=== PATIENT | male | born 1950 | race Caucasian/White ===

== ENCOUNTER 2018-01-07 08:41 | Emergency (ER) | payer MEDICARE, OTHER ==
[2018-01-07 08:49] VITALS: BP 173/92
[2018-01-07] MEDS ORDERED: TETANUS/DIPHTHERIA/PERTUSSIS 0.5 ML SYRINGE IM ONE (08:52)
[2018-01-07] MEDS ORDERED: BACITRACIN OINT TOP STA (08:52)
--- NOTE | 2018-01-07 08:56 | ED Physician Documentation ---
History of Present Illness - Stated complaint Stated Complaint: R HAND BURN - Chief complaint Chief Complaint: Burn - History obtained from History obtained from: Patient - History of Present Illness Timing: Last night Pain level max: 3 Pain level now: 1 Improved by: rest Worsened by: movement - Additonal information Additional information: Patient is a 67-year-old [id number] male who presents to the emergency department after a burn with hot cooking oil last night on the right hand. Placed aloe vera on the wound last night as well as colloidal silver. Came in for evaluation today because of the blistering. Unknown last tetanus. Review of Systems Constitutional: denies: Fever Neurologic: denies: Focal weakness, Numbness PD PAST MEDICAL HISTORY - Past Medical History Past Medical History: No - Past Surgical History Past Surgical History: Yes HEENT: Rhinoplasty - Present Medications Home Medications: Ambulatory Orders Medication Instructions Recorded Confirmed Bacitracin Zinc Oint 1 applic TOP BID #1 tube 01/07/18 - Allergies Allergies/Adverse Reactions: Allergies Allergy/AdvReac Type Severity Reaction Status Date / Time No Known Drug Allergies Allergy Verified 01/07/18 08:48 - Social History Does the pt smoke?: No Smoking Status: Never smoker - Immunizations Immunizations are current?: No Immunizations: TDAP >10years/unknown PD ED PE NORMAL - Vitals Vital signs reviewed: Yes - General General: Alert and oriented X 3, No acute distress - HEENT HEENT: Moist mucous membranes - Extremities Extremities: Other (R hand - partial thickness burn to the lateral aspect of the index finger and the lateral aspect of the hand. NVI. blisters inact.) - Neuro Neuro: Alert and oriented X 3 - Psych Psych: Normal mood, Normal affect Results - Vitals Vitals: Vital Signs - 24 hr 01/07/18 08:45 Temperature 36.4 C L Heart Rate 65 Respiratory 18 Rate Blood Pressure 173/92 H O2 Saturation 97 Oxygen O2 Source Room air PD MEDICAL DECISION MAKING - ED course Complexity details: considered differential, d/w patient ED course: Patient is a 67-year-old male with a partial thickness burn to the right hand. Tdap given. The wound was cleansed and bandaged. Tolerated well. Does not require anything for pain. Will follow up with his PCP for further care. Will also give him hand stretches to perform from [employer]. Warnings of infection and instructions on wound care given at bedside. Also counseled on how to minimize scarring. Patient counseled regarding signs and symptoms for which I believe and urgent re-evaluation would be necessary. Patient with good understanding of and agreement to plan and is comfortable going home at this time This document was made in part using voice recognition software. While efforts are made to proofread this document, sound alike and grammatical errors may occur. Departure - Departure Disposition: 01 Home, Self Care Clinical Impression: Burn of hand Qualifiers: Encounter type: initial encounter Burn of hand location: unspecified site Laterality: right Burn degree: partial thickness (2nd degree) Qualified Code(s) : T23.201A - Burn of second degree of right hand, unspecified site, initial encounter Condition: Good Instructions: ED Burn Scald, ED Burn D 2nd Follow-Up: Rajan De Los Santos MD [Primary Care Provider] - Within 1 week (for wound check) Prescriptions: Bacitracin Zinc Oint 1 applic TOP BID #1 tube Comments: Keep the wound clean. Return for redness, swelling or drainage from the wound. Search [email or web address] for burn educational videos [facility] for hand stretching exercises for your burn. Discharge Date/Time: 01/07/18 09:25
== END 2018-01-07 09:25 | disposition home or self-care (01) ==
LOC: ED 08:41
DX: T23.201A Burn of second degree of right hand, unspecified site, initial encounter (principal); T31.0 Burns involving less than 10% of body surface; X10.2XXA Contact with fats and cooking oils, initial encounter; Z23 Encounter for immunization
CPT/HCPCS: 90471; 90715; 99281; 99282; A9270

== ENCOUNTER 2019-12-06 07:34 | Outpatient (CLI) | payer MEDICARE, OTHER ==
[2019-12-06 12:23] LABS: BASOPHILS # (AUTO) 0.1 10^3/uL (0.0-0.1); BASOPHILS % (AUTO) 0.7 %; EOSINOPHILS # (AUTO) 0.5 10^3/uL (0.0-0.7); EOSINOPHILS % (AUTO) 7.2 %; HGB - HEMOGLOBIN 15.5 g/dL (14.0-18.0); LYMPHOCYTES # (AUTO) 1.8 10^3/uL (1.5-3.5); LYMPHOCYTES % (AUTO) 25.1 %; MEAN CORPUSCULAR HEMOGLOBIN 30.2 pg (27.0-31.0); MEAN CORPUSCULAR HGB CONC 32.9 g/dL (32.0-36.0); MEAN CORPUSCULAR VOLUME 91.6 fL (80.0-94.0); MEAN PLATELET VOLUME 9.5 fL (7.4-11.4); MONOCYTES # (AUTO) 0.7 10^3/uL (0.0-1.0); MONOCYTES % (AUTO) 10.4 %; NEUTROPHILS % (AUTO) 56.2 %; PLT - PLATELET COUNT 287 10^3/uL (130-450); RED BLOOD COUNT 5.14 10^6/uL (4.70-6.10); RED CELL DISTRIBUTION WIDTH 13.5 % (12.0-15.0); WHITE BLOOD COUNT 7.1 x10^3/uL (4.8-10.8)
[2019-12-06 12:31] LABS: ALBUMIN 4.2 g/dL (3.2-5.5); ALBUMIN/GLOBULIN RATIO 1.2 (1.0-2.2); ALKALINE PHOSPHATASE 52 IU/L (42-121); ALT ALANINE AMINOTRANSFERASE 53 IU/L (10-60); AST ASPARTATE AMINOTRANSFERASE 32 IU/L (10-42); BILIRUBIN,TOTAL 0.7 mg/dL (0.2-1.0); BUN - BLOOD UREA NITROGEN 19 mg/dL (6-20); CALCIUM 9.9 mg/dL (8.5-10.3); CARBON DIOXIDE - CO2 25 mmol/L (21-32); CHLORIDE 103 mmol/L (101-111); CHOL/HDL RATIO 4.1 (<5.0); CHOLESTEROL 218 mg/dL; CREATININE 1.1 mg/dL (0.6-1.2); GFR - MDRD 67 (>89); GLUCOSE 106 mg/dL (70-100); HDL CHOLESTEROL 53 mg/dL; LDL CHOLESTEROL,CALCULATED 147 mg/dL; LDL/HDL RATIO 2.8 (<3.6); SODIUM 136 mmol/L (135-145); TOTAL PROTEIN 7.7 g/dL (6.7-8.2); VLDL CHOLESTEROL 18 mg/dL
== END 2019-12-06 23:59 | disposition home or self-care (01) ==
LOC: LAB.WCP 07:34
PROVIDERS: ATTEND Nurse Practitioner Family
DX: I10 Essential (primary) hypertension (principal); E78.5 Hyperlipidemia, unspecified
CPT/HCPCS: 36415; 80053; 80061; 83721; 84443; 85025

== ENCOUNTER 2019-12-12 07:52 | Outpatient (CLI) | payer MEDICARE, OTHER ==
--- NOTE | 2019-12-12 10:04 | CT Report ---
Reason: FORMER SMOKER, QUIT > 1 YEAR Procedure Date: 12/12/2019 Accession Number: [id number] / [id number] Procedure: CT - Low Dose Lung Cancer Screen CPT Code: Final Report FULL RESULT: EXAM CT LUNG SCREEN EXAM DATE: 12/12/2019 08:11 AM. HISTORY: 69-year-old patient with 34-umls-glur smoking history. Currently smoking: No. Years since quittin. COMPARISON: None. TECHNIQUE: CT examination of the entire thorax without contrast was performed using low-dose technique. Thin section coronal, axial, sagittal and MIP axial images were obtained. In accordance with CT protocol optimization, one or more of the following dose reduction techniques were utilized for this exam: automated exposure control, adjustment of mA and/or KV based on patient size, or use of iterative reconstructive technique. FINDINGS: Nodules: Right upper lobe: 5 mm nodular opacity, image 35, series 4. 2 mm nodular opacity, image 65, series 4. Right middle lobe: Fissural nodular opacity 5 mm, image 94, series 4. Right lower lobe: 2.5 mm nodular opacity subpleural, image 102, series 4. Left upper lobe: 2 mm nodule posterior inferior, image 97, series 4. Left lower lobe: 2 mm medial, image 81, series 4. 2 mm subpleural posterior, image 88, series 4. 2 mm inferior, image 126, series 4. Emphysema: Mild emphysematous changes present. Pleura: Unremarkable. Aorta: Thoracic aortic calcified plaque. No aneurysm. Mediastinum: Heart size normal. Small hiatal hernia. No enlarged mediastinal or hilar lymph nodes. Visualized thyroid gland appears small. Mildly prominent bilateral axillary lymph nodes are seen measuring up to 7-8 mm in short axis dimension. Coronary calcifications: Marked degree of coronary artery calcified plaque. Other pulmonary findings: Calcified granuloma seen in the left upper lobe and left lower lobes. No focal consolidation. Lingular scar/atelectasis also present in the right middle lobe and both lower lobes. Other extrapulmonary findings: Included portions of the liver, spleen, adrenals, pancreas and gallbladder are unremarkable. A high-density structure is seen by the duodenum may represent a recently ingested structure such as a pill. Included portions of the kidneys are limited in detail due to technique but are otherwise unremarkable. Abdominal artery calcified plaque. Included portions of the stomach and upper abdominal bowel are otherwise unremarkable. Degenerative changes of the thoracic spine. IMPRESSION: Lung-RADS ASSESSMENT CATEGORY: 2 - benign appearance or behavior. Probability of malignancy: Less than 1%. RECOMMENDATION: Follow-up in 12 months with low-dose chest CT recommended. RADIA
== END 2019-12-12 07:53 | disposition home or self-care (01) ==
LOC: DI 07:52
PROVIDERS: ATTEND Nurse Practitioner Family
DX: Z12.2 Encounter for screening for malignant neoplasm of respiratory organs (principal); J43.9 Emphysema, unspecified; Z87.891 Personal history of nicotine dependence

== ENCOUNTER 2020-01-19 10:06 | Day surgery (SDC) | payer MEDICARE, OTHER ==
[2020-01-19] MEDS ORDERED: LACTATED RINGERS 1,000 ML IV ONE (10:13)
[2020-01-19] MEDS ORDERED: MIDAZOLAM 2 MG/2 ML VIAL IVP ONE (11:04)
[2020-01-19] MEDS ORDERED: fentaNYL 250 MCG/5 ML VIAL IVP ONE (11:04)
[2020-01-19 12:30] VITALS: BP 111/75
== END 2020-01-19 10:07 | disposition home or self-care (01) ==
LOC: SDS 10:06
PROVIDERS: ATTEND Surgery
DX: Z12.11 Encounter for screening for malignant neoplasm of colon (principal); K64.8 Other hemorrhoids; Z86.010 Personal history of colon polyps; Z87.891 Personal history of nicotine dependence; Z86.79 Personal history of other diseases of the circulatory system; Z80.0 Family history of malignant neoplasm of digestive organs
CPT/HCPCS: G0105; J3010; J7120

== ENCOUNTER 2020-02-17 20:41 | Outpatient (CLI) | payer MEDICARE, OTHER | END 2020-02-17 20:42 | disposition home or self-care (01) | LOC: COV 20:41 | PROVIDERS: ATTEND Family Medicine | DX: R50.9 Fever, unspecified (principal) ==

== ENCOUNTER 2020-09-29 11:57 | Emergency (ER) | payer MEDICARE, OTHER ==
--- NOTE | 2020-09-29 12:30 | ED Physician Documentation ---
PD HPI FOCAL NEURO - Stated complaint Stated Complaint: DIZZY, HEAD PRESSURE - Chief complaint Chief Complaint: Neuro - History obtained from History obtained from: Patient - Additional information Additional information: Generally healthy 70-year-old gentleman got up early this morning to go to the bathroom around 330. When he got there he felt dizzy, like his eyes were spinning around in his head and he had to lean over. The dizziness lasted maybe 1 to 2 minutes and is gone and has not recurred but he has persistent left retro-orbital pressure since. He denies visual deficits, congestion, ear pain, fevers. No nausea or vomiting. He does not have a history of vertigo or other dizziness. Review of Systems Ten Systems: 10 systems reviewed and negative Constitutional: reports: Reviewed and negative Throat: reports: Reviewed and negative Cardiac: reports: Reviewed and negative Respiratory: reports: Reviewed and negative PD PAST MEDICAL HISTORY - Past Medical History Past Medical History: Yes Cardiovascular: Hypertension, High cholesterol Respiratory: Sleep apnea Neuro: None Endocrine/Autoimmune: None GI: GERD, Colon polyps, Other : None HEENT: None Psych: Depression Musculoskeletal: None Derm: None - Past Surgical History Past Surgical History: Yes General: Colonoscopy HEENT: Rhinoplasty - Present Medications Home Medications: Ambulatory Orders Medication Instructions Recorded Confirmed Multivitamin [Daily Multiple 1 tab PO DAILY 01/18/20 09/29/20 Vitamin] Diphenhydramine HCl/Zinc Acet 28.3 gm TP DAILY PRN 01/19/20 09/29/20 [Benadryl Itch Stopping Crm] Red Yeast Rice 600 mg PO DAILY 01/19/20 09/29/20 Famotidine [Pepcid] 20 mg PO DAILY 09/29/20 09/29/20 Mometasone Furoate [Nasonex] 1 spray NS BID #1 spray.pump 09/29/20 - Allergies Allergies/Adverse Reactions: Allergies Allergy/AdvReac Type Severity Reaction Status Date / Time No Known Drug Allergies Allergy Verified 09/29/20 12:16 - Social History Does the pt smoke?: No Smoking Status: Former smoker Does the pt drink ETOH?: Yes Does the pt have substance abuse?: Yes Substance Use and Type: Marijuana - Immunizations Immunizations are current?: No Immunizations: TDAP >10years/unknown - POLST Patient has POLST: No PD ED PE NORMAL - Vitals Vital signs reviewed: Yes - General General: Alert and oriented X 3, No acute distress - HEENT HEENT: PERRL, EOMI, Other (TMs are retracted) - Neck Neck: Supple, no meningeal sign, No bony TTP - Cardiac Cardiac: RRR, No murmur - Respiratory Respiratory: No respiratory distress, Clear bilaterally - Abdomen Abdomen: Non tender - Back Back: No CVA TTP, No spinal TTP - Derm Derm: Normal color, Warm and dry - Extremities Extremities: No edema, No calf tenderness / cord - Neuro Neuro: Alert and oriented X 3, No motor deficit, No sensory deficit, Normal speech NIHSS - Time Time: 12:20 - Level of Consciousness Level of consciousness: (0) Alert, Keenly responsive LOC Questions: (0) Answers both Q's correct LOC Commands: (0) Performs both correctly - Gaze Best Gaze: (0) Normal - Visual Visual: (0) No loss - Facial Palsy Facial Palsy: (0) Normal, symmetrical movement - Motor Arms (both separate) Motor Arm (right): (0) No drift Motor Arm (left): (0) No drift - Motor Legs (both separate) Motor Leg (right): (0) No drift Motor Leg (left): (0) No drift - Limb Ataxia Limb Ataxia: (0) Absent - Sensory Sensory: (0) Normal - Best Language Best Language: (0) No aphasia - Dysarthria Dysarthria: (0) Normal - Extinction and Inattention (formally neg Extinction and inattention: (0) No abnormality - Total Score/Results Total Score/Result: 0 Results - Vitals Vitals: Vital Signs - 24 hr 09/29/20 09/29/20 09/29/20 12:11 12:23 13:25 Temperature 36.0 C L 37.3 C Heart Rate 71 71 60 Respiratory 15 16 14 Rate Blood Pressure 163/91 H 142/83 H 143/81 H O2 Saturation 98 99 96 Oxygen O2 Source Room air - EKG (time done) 1209 Rate: Rate (enter#) (70) Rhythm: NSR [place]: Normal Intervals: Normal [place] QRS: Normal Ischemia: Non specific changes Computer interpretation: Agree with computer - Labs Labs: Laboratory Tests 09/29/20 09/29/20 12:15 12:15 WBC 9.5 RBC 4.91 Hgb 15.4 Hct 44.5 MCV 90.6 MCH 31.4 H MCHC 34.6 RDW 13.2 Plt Count 230 MPV 9.3 Neut # (Auto) 6.6 Lymph # (Auto) 1.7 [place] # (Auto) 0.8 Eos # (Auto) 0.4 Baso # (Auto) 0.0 Absolute Nucleated RBC 0.00 Nucleated RBC % 0.0 Sodium 134 L Potassium 3.8 Chloride 100 L Carbon Dioxide 23 Anion Gap 11.0 BUN 12 Creatinine 1.0 Estimated GFR (MDRD) 74 L Glucose 91 Calcium 9.5 PD MEDICAL DECISION MAKING - ED course ED course: 70-year-old gentleman with a short episode of resolved vertigo this morning that per his description is likely peripheral but with persistent left-sided head pressure since. Cranial imaging was negative. With the exception of sinus disease for which he is administered a nasal steroid. This may be the cause of his head pressure. Exam was normal other than retracted tympanic membranes. Departure - Departure Disposition: 01 Home, Self Care Clinical Impression: Sinus disease Peripheral vertigo Qualifiers: Laterality: unspecified laterality Qualified Code(s): H81.399 - Other peripheral vertigo, unspecified ear Condition: Good Record reviewed to determine appropriate education?: Yes Instructions: ED Vertigo Unspecified Prescriptions: Mometasone Furoate [Nasonex] 1 spray NS BID #1 spray.pump Comments: Call your doctor to arrange a follow-up appointment, make the next available appointment. In the interim, return anytime if worse or if new symptoms develop. Discharge Date/Time: 09/29/20 13:55
[2020-09-29 12:40] LABS: BASOPHILS % (AUTO) 0.4 %; EOSINOPHILS # (AUTO) 0.4 10^3/uL (0.0-0.7); EOSINOPHILS % (AUTO) 3.9 %; HGB - HEMOGLOBIN 15.4 g/dL (14.0-18.0); LYMPHOCYTES # (AUTO) 1.7 10^3/uL (1.5-3.5); LYMPHOCYTES % (AUTO) 17.5 %; MEAN CORPUSCULAR HEMOGLOBIN 31.4 pg (27.0-31.0); MEAN CORPUSCULAR HGB CONC 34.6 g/dL (32.0-36.0); MEAN CORPUSCULAR VOLUME 90.6 fL (80.0-94.0); MEAN PLATELET VOLUME 9.3 fL (7.4-11.4); MONOCYTES # (AUTO) 0.8 10^3/uL (0.0-1.0); MONOCYTES % (AUTO) 8.5 %; NEUTROPHILS # (AUTO) 6.6 10^3/uL (1.5-6.6); NEUTROPHILS % (AUTO) 69.3 %; PLT - PLATELET COUNT 230 10^3/uL (130-450); RED BLOOD COUNT 4.91 10^6/uL (4.70-6.10); RED CELL DISTRIBUTION WIDTH 13.2 % (12.0-15.0); WHITE BLOOD COUNT 9.5 x10^3/uL (4.8-10.8)
[2020-09-29 12:45] LABS: CALCIUM 9.5 mg/dL (8.5-10.3)
[2020-09-29 13:26] VITALS: BP 143/81
--- NOTE | 2020-09-29 13:36 | CT Report ---
PROCEDURE: HEAD WO INDICATIONS: vertigo TECHNIQUE: Noncontrast 4.5 mm thick angled axial sections acquired from the foramen magnum to the vertex. For r adiation dose reduction, the following was used: automated exposure control, adjustment of mA and/or kV according to patient size. COMPARISON: None. FINDINGS: Image quality: Excellent. CSF spaces: Basal cisterns are patent. No extra-axial fluid collections. Ventricles are normal in size and shape. Brain: No midline shift. No intracranial masses or hemorrhage. [place]-white matter interface is norm al. Atherosclerotic calcifications of the intracranial segments of the internal carotid arteries. Skull and face: Calvarium and visualized facial bones are intact, without suspicious lesions. Sinuses: Scattered ethmoid and sphenoid sinus mucosal thickening. Remainder of the visualized sinuse s and mastoids are clear. IMPRESSION: 1. CT head without acute intracranial abnormalities. 2. Scattered ethmoid and sphenoid sinus disease. Reviewed by: Abimael Mary MD on 09/29/2020 12:34 PM [facility] Approved by: Abimael Mary MD on 09/29/2020 12:34 PM [facility] Station ID: [id number]
== END 2020-09-29 13:55 | disposition home or self-care (01) ==
LOC: ED 11:57
DX: H81.399 Other peripheral vertigo, unspecified ear (principal); J01.30 Acute sphenoidal sinusitis, unspecified; I10 Essential (primary) hypertension; Z87.891 Personal history of nicotine dependence
CPT/HCPCS: 36415; 70450; 80048; 85025; 93005; 99284

== ENCOUNTER 2020-10-11 12:17 | Emergency (ER) | payer MEDICARE, OTHER ==
--- NOTE | 2020-10-11 12:32 | ED Physician Documentation ---
History of Present Illness - Stated complaint Stated Complaint: DIZZINESS - Chief complaint Chief Complaint: Neuro - History obtained from History obtained from: Patient - Additonal information Additional information: 70 yo M presents with vertigo x 2 days. States he has sudden spells where he feels the room is spinning and his "eyeballs and dancing around." States he was seen on 09/29 and dx'd with vertigo at that time. He had a negative CT then. He did have some sinus sx at that time and was given nasal steroids. He felt improvement and sx resolved the next day. He has been continuing the nasal steroids but again developed the vertigo. Feels his sinus sx have improved however. Vertigo is positional, worse when he is up or moves quickly. Doesn't seem to be worse on one side or another. Denies any associated neuro sx, ext weak/numbness, ataxia, vision changes, vomiting. He does have head pressure in the left parietal area, similar to before. No cough or URI sx, no fever, no cp, dyspnea, abd pain, n/v/d. He denies any new meds except for nasal spray. Denies drugs/etoh. He did follow up w/ PCP a few days ago after the initial episode and had an apparently normal exam. Review of Systems Constitutional: reports: Reviewed and negative Eyes: reports: Reviewed and negative Ears: reports: Reviewed and negative Nose: reports: Congestion. denies: Rhinorrhea / runny nose, Sinus pressure / pain, Foreign Body Throat: reports: Reviewed and negative Cardiac: reports: Reviewed and negative Respiratory: reports: Reviewed and negative GI: reports: Reviewed and negative : reports: Reviewed and negative Skin: reports: Reviewed and negative Musculoskeletal: reports: Reviewed and negative Neurologic: reports: Other (vertigo, otherwise negative.) Psychiatric: reports: Reviewed and negative Endocrine: reports: Reviewed and negative PD PAST MEDICAL HISTORY - Past Medical History Cardiovascular: Hypertension, High cholesterol Respiratory: Sleep apnea Neuro: None Endocrine/Autoimmune: None GI: GERD, Colon polyps, Other : None HEENT: None Psych: Depression Musculoskeletal: None Derm: None - Past Surgical History Past Surgical History: Yes General: Colonoscopy HEENT: Rhinoplasty - Present Medications Home Medications: Ambulatory Orders Medication Instructions Recorded Confirmed Multivitamin [Daily Multiple 1 tab PO DAILY 01/18/20 09/29/20 Vitamin] Diphenhydramine HCl/Zinc Acet 28.3 gm TP DAILY PRN 01/19/20 09/29/20 [Benadryl Itch Stopping Crm] Red Yeast Rice 600 mg PO DAILY 01/19/20 09/29/20 Famotidine [Pepcid] 20 mg PO DAILY 09/29/20 09/29/20 Mometasone Furoate [Nasonex] 1 spray NS BID #1 spray.pump 09/29/20 Meclizine [Antivert] 25 mg PO Q6H PRN #30 tablet 10/11/20 - Allergies Allergies/Adverse Reactions: Allergies Allergy/AdvReac Type Severity Reaction Status Date / Time No Known Drug Allergies Allergy Verified 09/29/20 12:16 - Social History Does the pt smoke?: No Smoking Status: Former smoker Does the pt drink ETOH?: Yes Does the pt have substance abuse?: Yes - Immunizations Immunizations are current?: No Immunizations: TDAP >10years/unknown - POLST Patient has POLST: No PD ED PE NORMAL - Vitals Vital signs reviewed: Yes - General General: Alert and oriented X 3, No acute distress, Well developed/nourished - HEENT HEENT: Atraumatic, PERRL, EOMI, Ears normal, Moist mucous membranes, Pharynx benign, Other (NO nystagmus) - Neck Neck: Supple, no meningeal sign, No bony TTP - Cardiac Cardiac: RRR, No murmur, No gallop, No rub - Respiratory Respiratory: No respiratory distress, Clear bilaterally - Abdomen Abdomen: Normal bowel sounds, Soft, Non tender, Non distended - Derm Derm: Normal color, Warm and dry, No rash - Extremities Extremities: No deformity, Normal ROM s pain, No edema - Neuro Neuro: Alert and oriented X 3, lead massage therapist 2-12 intact, No motor deficit, No sensory deficit, Normal speech, Other (Negative emily halpike, didn't induce vertigo on exam. No ataxia w/ ambulation. +saccade w/ horizontal impulse) Eye Opening: Spontaneous Motor: Obeys Commands Verbal: Oriented GCS Score: 15 - Psych Psych: Normal mood, Normal affect Results - Vitals Vitals: Vital Signs - 24 hr 10/11/20 10/11/20 12:20 13:34 Temperature 36.8 C 36.8 C Heart Rate 61 62 Respiratory 18 12 Rate Blood Pressure 164/65 H 144/87 H O2 Saturation 99 94 Oxygen O2 Source Room air - EKG (time done) No standard instances Rate: Rate (enter#) (63) Rhythm: NSR [place]: Normal Intervals: Normal [place] QRS: Normal Ischemia: Normal ST segments Compare to prior EKG: Unchanged from prior EKG Computer interpretation: Agree with computer - Labs Labs: Laboratory Tests 10/11/20 10/11/20 10/11/20 12:34 12:51 12:51 WBC 6.0 RBC 4.82 Hgb 15.0 Hct 43.8 MCV 90.9 MCH 31.1 H MCHC 34.2 RDW 13.0 Plt Count 225 MPV 9.3 Neut # (Auto) 3.5 Lymph # (Auto) 1.6 [place] # (Auto) 0.5 Eos # (Auto) 0.4 Baso # (Auto) 0.1 Absolute Nucleated RBC 0.00 Nucleated RBC % 0.0 Sodium 135 Potassium 4.1 Chloride 102 Carbon Dioxide 26 Anion Gap 7.0 BUN 15 Creatinine 0.9 Estimated GFR (MDRD) 84 L Glucose 129 H Calcium 10.1 Total Bilirubin 0.6 AST 26 ALT 47 Alkaline Phosphatase 54 Total Protein 7.1 Albumin 3.9 Globulin 3.2 Albumin/Globulin Ratio 1.2 Lipase 36 Urine Color YELLOW Urine Clarity CLEAR Urine pH 7.5 Ur Specific [place] 1.015 Urine Protein NEGATIVE Urine Glucose (UA) NEGATIVE Urine Ketones NEGATIVE Urine Occult Blood NEGATIVE Urine Nitrite NEGATIVE Urine Bilirubin NEGATIVE Urine Urobilinogen 0.2 (NORMAL) Ur Leukocyte Esterase TRACE H Urine RBC None Seen Urine WBC 0-3 Ur Squamous Epith Cells NONE SEEN Urine Bacteria Rare Ur Microscopic Review INDICATED Urine Culture Comments INDICATED PD MEDICAL DECISION MAKING - ED course Complexity details: reviewed old records, reviewed results, re-evaluated patient, considered differential, d/w patient ED course: Pt presented again with sx of vertigo today, similar to last visit on 09/29. He had a negative CT at that time and I didn't seen an indication to repeat it again today. Vertigo is transient and he currently does not have symptoms. His neuro exam was normal, there is no ataxia. Sx suggestive of a peripheral vertigo but I advised if he continues to have episodes I'd recommend fup with neurology for additional workup. Pt to continue nasal steroids and will add prn meclizine. Provided with copy of exercises to try when the vertigo strikes. Advised to stay well hydrated, move slowly when changing positions, avoid driving/operating machinery until sx resolve. Cautioned on side effects of meclizine. Departure - Departure Disposition: 01 Home, Self Care Clinical Impression: Vertigo Peripheral vertigo Qualifiers: Laterality: unspecified laterality Qualified Code(s): H81.399 - Other peripheral vertigo, unspecified ear Condition: Good Instructions: Meclizine, ED Near Syncope Unkn, ED Vertigo Unspecified Prescriptions: Meclizine [Antivert] 25 mg PO Q6H PRN #30 tablet PRN Reason: Vertigo Comments: You presented with vertigo. Your labs are reassuring and you have a normal physical exam. I did not repeat the CT today as you had one recently that was normal. I will prescribe medication for the vertigo that can sometimes be helpful. If you have recurrent symptoms, please see your PCP and consider referral to neurology and/or an MRI. If you develop new neurologic symptoms such as focal weakness, confusion, numbness, vomiting, or otherwise new symptoms, please return to the ER. Discharge Date/Time: 10/11/20 13:36
[2020-10-11 12:45] LABS: BILIRUBIN,URINE NEGATIVE (NEGATIVE); GLUCOSE, URINE (UA) NEGATIVE (NEGATIVE); KETONES,URINE (UA) NEGATIVE (NEGATIVE); LEUKOCYTE ESTERASE, URINE TRACE (NEGATIVE); NITRITE,URINE NEGATIVE (NEGATIVE); OCCULT BLOOD,URINE NEGATIVE (NEGATIVE); PH,URINE 7.5 PH (5.0-7.5); PROTEIN,URINE NEGATIVE (NEGATIVE); UROBILINOGEN,URINE 0.2 (NORMAL) E.U./dL (NORMAL)
[2020-10-11 12:47] LABS: CLARITY,URINE CLEAR (CLEAR)
[2020-10-11 13:01] LABS: BACTERIA,URINE Rare /HPF (None Seen); RBC,URINE None Seen /HPF (0-5); SQUAMOUS EPITHELIAL CELL,UR NONE SEEN (<= Few)
[2020-10-11 13:02] LABS: BASOPHILS # (AUTO) 0.1 10^3/uL (0.0-0.1); BASOPHILS % (AUTO) 0.8 %; EOSINOPHILS # (AUTO) 0.4 10^3/uL (0.0-0.7); EOSINOPHILS % (AUTO) 7.3 %; LYMPHOCYTES # (AUTO) 1.6 10^3/uL (1.5-3.5); LYMPHOCYTES % (AUTO) 26.4 %; MEAN CORPUSCULAR HEMOGLOBIN 31.1 pg (27.0-31.0); MEAN CORPUSCULAR HGB CONC 34.2 g/dL (32.0-36.0); MEAN CORPUSCULAR VOLUME 90.9 fL (80.0-94.0); MEAN PLATELET VOLUME 9.3 fL (7.4-11.4); MONOCYTES # (AUTO) 0.5 10^3/uL (0.0-1.0); MONOCYTES % (AUTO) 7.5 %; NEUTROPHILS # (AUTO) 3.5 10^3/uL (1.5-6.6); NEUTROPHILS % (AUTO) 57.5 %; PLT - PLATELET COUNT 225 10^3/uL (130-450); RED BLOOD COUNT 4.82 10^6/uL (4.70-6.10)
[2020-10-11 13:13] LABS: ALBUMIN 3.9 g/dL (3.2-5.5); ALBUMIN/GLOBULIN RATIO 1.2 (1.0-2.2); BILIRUBIN,TOTAL 0.6 mg/dL (0.2-1.0); CALCIUM 10.1 mg/dL (8.5-10.3); CREATININE 0.9 mg/dL (0.6-1.2); TOTAL PROTEIN 7.1 g/dL (6.7-8.2)
[2020-10-11 13:36] VITALS: BP 144/87
== END 2020-10-11 13:36 | disposition home or self-care (01) ==
LOC: ED 12:17
DX: H81.399 Other peripheral vertigo, unspecified ear (principal); I10 Essential (primary) hypertension; Z87.891 Personal history of nicotine dependence
CPT/HCPCS: 36415; 80053; 81001; 81003; 83690; 84484; 85025; 87086; 93005; 99283; 99284

== ENCOUNTER 2021-01-05 09:36 | Outpatient (CLI) | payer MEDICARE, OTHER ==
--- NOTE | 2021-01-05 11:08 | CT Report ---
PROCEDURE: CHEST WO INDICATIONS: MULTIPLE NODULES OF LUNG, FORMER SMOKER TECHNIQUE: Noncontrast 5 mm thick sections acquired from the pulmonary apices to the posterior costophrenic angl es. 7 mm thick coronal and sagittal MIP reformats were then acquired. For radiation dose reduction, the following was used: automated exposure control, adjustment of mA and/or kV according to patient size. COMPARISON: Chest CT 12/12/2019 FINDINGS: Image quality: Excellent. Lungs and pleura: Pulmonary nodules are seen, which are as follows: Right upper lobe, series 4 image 76, 4 mm, stable Right oblique fissure, series 4 image 190, 5 mm, stable Right lower lobe, subpleural, potentially calcified, series 4 image 199, 2 mm, stable Left upper lobe, posteriorly and inferiorly, series 4 image 186, potentially calcified, 2 mm, stable Left lower lobe, subpleural, series 4 image 160, 2 to 3 mm, stable Left lower lobe, subpleural posteriorly, potentially calcified, series 4 image 171, 2 mm, stable The previously described 2 mm nodular opacity within the right upper lobe is no longer definitely see n. No new pulmonary nodules can be seen. No acute air space opacities. No pleural effusions or pneumothorax. Central and peripheral airways are patent and normal in caliber. Mediastinum: Heart size is normal. Dense coronary artery calcifications are seen. No pericardial eff usion. No mediastinal adenopathy by size criteria. Thoracic aorta and central pulmonary arteries ar e normal in size. Dense atherosclerosis calcification is seen. Esophagus is normal in caliber. There is a small hiatal hernia. Bones and chest wall: No suspicious bony lesions. Age-appropriate degenerative changes are seen. No vertebral body compression fractures. No axillary or supraclavicular adenopathy by size criteria. The thyroid is normal in size. Abdomen: Visualized upper abdominal solid organs and bowel loops appear normal in the absence of con trast. Dense atherosclerotic calcification can be seen, including involving the origins of the denita c axis and the SMA. IMPRESSION: Several pulmonary nodules are seen, with the largest measuring up to 4 mm. Recommend annual low-dose CT chest screening examinations, as long as the patient meets the published screening criteria. Incidental note is made of: Small hiatal hernia Dense assess chronic calcification, including coronary artery calcification Reviewed by: Bradley Kearney MD on 01/05/2021 10:07 AM [place] Approved by: Bradely Kearney MD on 01/05/2021 10:07 AM [facility] Station ID: [id number]
== END 2021-01-05 09:37 | disposition home or self-care (01) ==
LOC: DI 09:36
PROVIDERS: ATTEND Nurse Practitioner Family
DX: R91.8 Other nonspecific abnormal finding of lung field (principal); Z87.891 Personal history of nicotine dependence; K44.9 Diaphragmatic hernia without obstruction or gangrene

== ENCOUNTER 2021-01-09 08:00 | Outpatient (CLI) | payer MEDICARE, OTHER ==
[2021-01-09 18:21] LABS: BASOPHILS % (AUTO) 0.6 %; EOSINOPHILS # (AUTO) 0.7 10^3/uL (0.0-0.7); EOSINOPHILS % (AUTO) 9.6 %; HGB - HEMOGLOBIN 15.8 g/dL (14.0-18.0); LYMPHOCYTES # (AUTO) 1.8 10^3/uL (1.5-3.5); MEAN CORPUSCULAR HEMOGLOBIN 30.5 pg (27.0-31.0); MEAN CORPUSCULAR VOLUME 92.5 fL (80.0-94.0); MEAN PLATELET VOLUME 10.1 fL (7.4-11.4); MONOCYTES # (AUTO) 0.6 10^3/uL (0.0-1.0); MONOCYTES % (AUTO) 9.3 %; NEUTROPHILS # (AUTO) 3.6 10^3/uL (1.5-6.6); NEUTROPHILS % (AUTO) 53.2 %; PLT - PLATELET COUNT 262 10^3/uL (130-450); RED BLOOD COUNT 5.18 10^6/uL (4.70-6.10); RED CELL DISTRIBUTION WIDTH 13.3 % (12.0-15.0); WHITE BLOOD COUNT 6.8 x10^3/uL (4.8-10.8)
[2021-01-09 18:41] LABS: ALBUMIN 4.4 g/dL (3.2-5.5); ALBUMIN/GLOBULIN RATIO 1.5 (1.0-2.2); ALKALINE PHOSPHATASE 58 IU/L (42-121); ALT ALANINE AMINOTRANSFERASE 46 IU/L (10-60); AST ASPARTATE AMINOTRANSFERASE 27 IU/L (10-42); BILIRUBIN,TOTAL 0.8 mg/dL (0.2-1.0); BUN - BLOOD UREA NITROGEN 16 mg/dL (6-20); CALCIUM 10.9 mg/dL (8.5-10.3); CARBON DIOXIDE - CO2 25 mmol/L (21-32); CHLORIDE 99 mmol/L (101-111); CHOL/HDL RATIO 4.5 (<5.0); CHOLESTEROL 232 mg/dL; GLUCOSE 97 mg/dL (70-100); HDL CHOLESTEROL 51 mg/dL; LDL CHOLESTEROL,CALCULATED 160 mg/dL; LDL/HDL RATIO 3.1 (<3.6); TOTAL PROTEIN 7.3 g/dL (6.7-8.2); VLDL CHOLESTEROL 21 mg/dL
== END 2021-01-09 23:59 | disposition home or self-care (01) ==
LOC: LAB.WCP 08:00
PROVIDERS: ATTEND Nurse Practitioner Family
DX: E78.5 Hyperlipidemia, unspecified (principal); I10 Essential (primary) hypertension; Z12.5 Encounter for screening for malignant neoplasm of prostate
CPT/HCPCS: 36415; 80053; 80061; 84443; 85025; G0103; 83721; 84153

== ENCOUNTER 2021-07-23 13:36 | Outpatient (CLI) | payer MEDICARE, OTHER | END 2021-07-23 13:37 | disposition home or self-care (01) | LOC: COV 13:36 | PROVIDERS: ATTEND Family Medicine | DX: R50.9 Fever, unspecified (principal); R07.0 Pain in throat; Z20.822 Contact with and (suspected) exposure to COVID-19 ==

== ENCOUNTER 2021-09-12 12:58 | Outpatient (CLI) | payer MEDICARE, OTHER ==
[2021-09-12 18:17] LABS: BASOPHILS % (AUTO) 0.6 %; EOSINOPHILS # (AUTO) 0.5 10^3/uL (0.0-0.7); EOSINOPHILS % (AUTO) 6.9 %; HCT - HEMATOCRIT 46.2 % (42.0-52.0); HGB - HEMOGLOBIN 15.3 g/dL (14.0-18.0); LYMPHOCYTES # (AUTO) 1.6 10^3/uL (1.5-3.5); LYMPHOCYTES % (AUTO) 23.5 %; MEAN CORPUSCULAR HEMOGLOBIN 30.4 pg (27.0-31.0); MEAN CORPUSCULAR HGB CONC 33.1 g/dL (32.0-36.0); MEAN CORPUSCULAR VOLUME 91.8 fL (80.0-94.0); MEAN PLATELET VOLUME 10.4 fL (7.4-11.4); MONOCYTES # (AUTO) 0.6 10^3/uL (0.0-1.0); MONOCYTES % (AUTO) 9.1 %; NEUTROPHILS # (AUTO) 4.1 10^3/uL (1.5-6.6); NEUTROPHILS % (AUTO) 59.5 %; PLT - PLATELET COUNT 219 10^3/uL (130-450); RED BLOOD COUNT 5.03 10^6/uL (4.70-6.10); RED CELL DISTRIBUTION WIDTH 13.6 % (12.0-15.0)
[2021-09-12 18:43] LABS: ALBUMIN 4.3 g/dL (3.2-5.5); ALBUMIN/GLOBULIN RATIO 1.6 (1.0-2.2); BILIRUBIN,TOTAL 0.7 mg/dL (0.2-1.0); CALCIUM 9.5 mg/dL (8.5-10.3); CRP - C-REACTIVE PROTEIN 1.2 mg/dL (0-1.0); POTASSIUM 3.9 mmol/L (3.5-5.0); RHEUMATOID FACTOR NEGATIVE (Negative); URIC ACID 7.6 mg/dL (2.6-7.2)
[2021-09-14 15:31] LABS: ALBUMIN 4.3 g/dL (3.8-4.8); ALPHA 1 GLOBULIN 0.2 g/dL (0.2-0.3); ALPHA 2 GLOBULIN 0.7 g/dL (0.5-0.9); BETA 1 GLOBULIN 0.5 g/dL (0.4-0.6); BETA 2 GLOBULIN 0.3 g/dL (0.2-0.5); GAMMA GLOBULIN 0.7 g/dL (0.8-1.7)
== END 2021-09-12 23:55 | disposition home or self-care (01) ==
LOC: LAB.WCP 12:58
PROVIDERS: ATTEND Family Medicine
DX: E83.52 Hypercalcemia (principal); M25.50 Pain in unspecified joint
CPT/HCPCS: 36415; 80053; 82306; 82330; 82550; 83970; 84155; 84165; 84550; 85025; 85651; 86140; 86200; 86430

== ENCOUNTER 2021-09-17 16:12 | Outpatient (CLI) | payer MEDICARE, OTHER ==
--- NOTE | 2021-09-26 02:21 | XRAY Report ---
PROCEDURE: Pelvis 1 View INDICATIONS: BILATERAL HIP PX TECHNIQUE: Single view of the pelvis was obtained. Image was available for interpretation on . COMPARISON: None. FINDINGS: No visualized fracture or dislocation. No suspicious osseous lesions. Mild to moderate degenerative h ip joint space narrowing is present with minimal periarticular osteophytes. No erosions. IMPRESSION: Arthritic changes within the hips bilaterally. Reviewed by: Afia Hsieh MD on 09/26/2021 1:21 AM PDT Approved by: Afia Hsieh MD on 09/26/2021 1:21 AM PDT Station ID: [id number]
--- NOTE | 2021-09-26 09:10 | XRAY Report ---
PROCEDURE: Shoulder 2 View BILAT INDICATIONS: CHRONIC BILATERAL SHOULDER PX TECHNIQUE: views of the shoulder were acquired. COMPARISON: None. FINDINGS: Bones: No fractures or dislocations. No suspicious bony lesions. Visualized ribs appear intact. M ild joint space narrowing and periarticular osteophyte formation at the acromioclavicular and glenohu meral joints bilaterally. Soft tissues: 10 mm calcific focus projects over the right rotator cuff. IMPRESSION: 1. Bilateral osteoarthritis. 2. Calcific tendinitis of the right rotator cuff. Further assessment with MRI is recommended. Reviewed by: Sara Jennings MD on 09/26/2021 9:09 AM PDT Approved by: Sara Jennings MD on 09/26/2021 9:09 AM PDT Station ID: [id number]
== END 2021-09-17 16:13 | disposition home or self-care (01) ==
LOC: DI.N 16:12
PROVIDERS: ATTEND Family Medicine
DX: M16.0 Bilateral primary osteoarthritis of hip (principal); M19.012 Primary osteoarthritis, left shoulder; M19.011 Primary osteoarthritis, right shoulder; M75.31 Calcific tendinitis of right shoulder; D80.1 Nonfamilial hypogammaglobulinemia
CPT/HCPCS: 81599; 82784; 86334; 86335

== ENCOUNTER 2021-10-15 10:59 | Outpatient (CLI) | payer MEDICARE, OTHER ==
--- NOTE | 2021-10-15 13:02 | XRAY Report ---
PROCEDURE: Pelvis 1 View INDICATIONS: SHOULDER PAIN,CHRONIC,BILAT HIP PAIN TECHNIQUE: Single AP view of the pelvis acquired. COMPARISON: Pelvic radiograph 09/17/2021. FINDINGS: Bones: No acute fractures or dislocations. No suspicious bony lesions. Mild to moderate degenerati ve changes are seen in the hips bilaterally. Degenerative changes also noted in the sacroiliac joints and included lower lumbar spine. Soft tissues: Visualized bowel gas pattern is normal. Nonspecific calcifications are seen projecting over the pubic symphysis. IMPRESSION: 1.Mild to moderate degenerative osteoarthrosis of the hips bilaterally, not significantly changed whe n compared to the radiographs from 09/17/2021. 2.Degenerative changes also noted in the sacroiliac joints and included lower lumbar spine. Reviewed by: Zack Beck MD on 10/15/2021 1:00 PM PST Approved by: Zack Beck MD on 10/15/2021 1:00 PM PST Station ID: [id number]
--- NOTE | 2021-10-15 17:49 | XRAY Report ---
PROCEDURE: Shoulder 2 View BILAT INDICATIONS: SHOULDER PAIN,CHRONIC,BILAT HIP PAIN TECHNIQUE: 2 views of the bilateral shoulders were acquired. COMPARISON: None. FINDINGS: Bones: No fractures or dislocations. No suspicious bony lesions. Visualized ribs appear intact. M ild bilateral shoulder degenerative change at the glenohumeral joint. Soft tissues: Left shoulder bursa calcifications are consistent with calcific bursitis. No calcificat ions involving the right shoulder soft tissues. IMPRESSION: 1. Mild bilateral glenohumeral joint degenerative change. 2. Calcific bursitis of the left shoulder. 3. No evidence acute bony abnormality of the bilateral shoulders. If clinical suspicion and/or symptoms persist, further assessment with repeat plain films or advanced imaging (e.g., CT, MRI, or bone scan) may be helpful for further assessment. Reviewed by: Cas Hayward MD on 10/15/2021 5:48 PM PST Approved by: Cas Hayward MD on 10/15/2021 5:48 PM PST Station ID: [id number]
== END 2021-10-15 11:00 | disposition home or self-care (01) ==
LOC: DI 10:59
PROVIDERS: ATTEND Family Medicine
DX: Z53.9 Procedure and treatment not carried out, unspecified reason (principal)

== ENCOUNTER 2021-12-28 08:58 | Outpatient (CLI) | payer MEDICARE, OTHER ==
--- NOTE | 2021-12-28 10:36 | CT Report ---
PROCEDURE: Low Dose Lung Cancer Screen INDICATIONS: MULTIPLE LUNG NODULES/FORMER SMOKER TECHNIQUE: Noncontrast low-dose images were acquired from the pulmonary apices to the posterior costophrenic ang les. Multiplanar MIP reformats were then acquired. For radiation dose reduction, the following was used: automated exposure control, adjustment of mA and/or kV according to patient size. COMPARISON: 01/05/2021, 12/12/2019 FINDINGS: Image quality: Excellent. Lungs and pleura: Multiple pulmonary nodules are seen, which are as follows: Right upper lobe, series 4 image 77, 2-3 mm, decreased in size Right minor fissure, series 4 image 189, 3 mm, decreased in size Right lower lobe subpleural, series 4 image 210, 2 mm, potentially calcified and stable Left upper lobe posteriorly and inferiorly subpleural thickening, series 4 image 187, stable Left lower lobe, subpleural and medial, series 4 image 170 2 mm, stable Left lower lobe subpleural and posterior, series 4 image 184, 1 to 2 mm, stable No new nodules are seen. No focal infiltrates are seen. Centrilobular emphysematous changes are seen, which are more prominent at the lung apices than at the lung bases. The central airways are patent. No pleural effusions or pneumothorax can be seen. Mediastinum: Heart size is normal. Relatively prominent atherosclerotic calcification of the coronar y arteries can be seen. No pericardial effusion. No mediastinal adenopathy by size criteria. Thorac ic aorta and central pulmonary arteries are normal in size. Atherosclerotic calcification is seen. E sophagus is normal in caliber. There is a small hiatal hernia. Bones and chest wall: No suspicious bony lesions. No vertebral body compression fractures. No axil renan or supraclavicular adenopathy by size criteria. The thyroid is normal in size and there are no incidental findings. Abdomen: Visualized upper abdomen solid organs and bowel loops appear normal in the absence of contr ast. IMPRESSION: Several small pulmonary nodules are seen, which are stable over time, with the largest measuring 3 mm . These nodules are considered to be benign. Incidental note is made of: Atherosclerotic calcification, including moderate calcification of the coronary arteries Small hiatal hernia Lung-RADS Category 2 Recommend annual low-dose CT chest screening examinations, as long as the patient meets the published screening criteria. Reviewed by: Bradley Kearney MD on 12/28/2021 9:34 AM CHRIS Approved by: Bradley Kearney MD on 12/28/2021 9:34 AM CHRIS Station ID: [id number]
== END 2021-12-28 08:59 | disposition home or self-care (01) ==
LOC: DI 08:58
PROVIDERS: ATTEND Family Medicine
DX: Z12.2 Encounter for screening for malignant neoplasm of respiratory organs (principal); R91.8 Other nonspecific abnormal finding of lung field; Z87.891 Personal history of nicotine dependence

== ENCOUNTER 2022-01-30 09:39 | Outpatient (CLI) | payer MEDICARE, OTHER ==
[2022-01-30 09:54] LABS: BASOPHILS % (AUTO) 0.6 %; EOSINOPHILS # (AUTO) 0.5 10^3/uL (0.0-0.7); EOSINOPHILS % (AUTO) 6.6 %; HCT - HEMATOCRIT 46.7 % (42.0-52.0); HGB - HEMOGLOBIN 15.5 g/dL (14.0-18.0); LYMPHOCYTES # (AUTO) 1.6 10^3/uL (1.5-3.5); LYMPHOCYTES % (AUTO) 23.1 %; MEAN CORPUSCULAR HEMOGLOBIN 29.6 pg (27.0-31.0); MEAN CORPUSCULAR HGB CONC 33.2 g/dL (32.0-36.0); MEAN CORPUSCULAR VOLUME 89.1 fL (80.0-94.0); MONOCYTES # (AUTO) 0.6 10^3/uL (0.0-1.0); MONOCYTES % (AUTO) 8.7 %; NEUTROPHILS # (AUTO) 4.1 10^3/uL (1.5-6.6); NEUTROPHILS % (AUTO) 60.7 %; PLT - PLATELET COUNT 223 10^3/uL (130-450); RED BLOOD COUNT 5.24 10^6/uL (4.70-6.10); WHITE BLOOD COUNT 6.8 x10^3/uL (4.8-10.8)
[2022-01-30 10:12] LABS: ALBUMIN 4.3 g/dL (3.2-5.5); ALBUMIN/GLOBULIN RATIO 1.3 (1.0-2.2); ALKALINE PHOSPHATASE 58 IU/L (42-121); ALT ALANINE AMINOTRANSFERASE 74 IU/L (10-60); AST ASPARTATE AMINOTRANSFERASE 35 IU/L (10-42); BILIRUBIN,TOTAL 0.8 mg/dL (0.2-1.0); BUN - BLOOD UREA NITROGEN 20 mg/dL (6-20); CALCIUM 10.1 mg/dL (8.5-10.3); CARBON DIOXIDE - CO2 25 mmol/L (21-32); CHLORIDE 102 mmol/L (101-111); CHOL/HDL RATIO 5.2 (<5.0); CHOLESTEROL 237 mg/dL; CREATININE 0.9 mg/dL (0.6-1.2); GFR - MDRD 83 (>89); GLUCOSE 122 mg/dL (70-100); HDL CHOLESTEROL 46 mg/dL; LDL CHOLESTEROL,CALCULATED 180 mg/dL; LDL/HDL RATIO 3.9 (<3.6); POTASSIUM 4.5 mmol/L (3.5-5.0); SODIUM 138 mmol/L (135-145); TOTAL PROTEIN 7.5 g/dL (6.7-8.2); TRIGLYCERIDES 53 mg/dL; VLDL CHOLESTEROL 11 mg/dL
== END 2022-01-30 09:40 | disposition home or self-care (01) ==
LOC: LAB 09:39
PROVIDERS: ATTEND Family Medicine
DX: I10 Essential (primary) hypertension (principal); E78.5 Hyperlipidemia, unspecified; Z12.5 Encounter for screening for malignant neoplasm of prostate
CPT/HCPCS: 36415; 80053; 80061; 85025; G0103; 83721; 84153

== ENCOUNTER 2022-02-15 10:25 | Emergency (ER) | payer MEDICARE, OTHER ==
[2022-02-15 10:56] LABS: BASOPHILS % (AUTO) 0.5 %; EOSINOPHILS # (AUTO) 0.4 10^3/uL (0.0-0.7); EOSINOPHILS % (AUTO) 5.8 %; HCT - HEMATOCRIT 44.4 % (42.0-52.0); HGB - HEMOGLOBIN 15.5 g/dL (14.0-18.0); LYMPHOCYTES # (AUTO) 1.3 10^3/uL (1.5-3.5); LYMPHOCYTES % (AUTO) 20.5 %; MEAN CORPUSCULAR HEMOGLOBIN 30.5 pg (27.0-31.0); MEAN CORPUSCULAR HGB CONC 34.9 g/dL (32.0-36.0); MEAN CORPUSCULAR VOLUME 87.2 fL (80.0-94.0); MEAN PLATELET VOLUME 9.2 fL (7.4-11.4); MONOCYTES # (AUTO) 0.5 10^3/uL (0.0-1.0); MONOCYTES % (AUTO) 7.3 %; NEUTROPHILS # (AUTO) 4.2 10^3/uL (1.5-6.6); NEUTROPHILS % (AUTO) 65.6 %; PLT - PLATELET COUNT 225 10^3/uL (130-450); RED BLOOD COUNT 5.09 10^6/uL (4.70-6.10); RED CELL DISTRIBUTION WIDTH 13.6 % (12.0-15.0); WHITE BLOOD COUNT 6.3 x10^3/uL (4.8-10.8)
--- OUTSIDE RECORDS SUMMARY | 2022-02-15 11:04 | EXTERNAL MEDICAL SUMMARY RPT | Continuity of Care Document ---
:1950 Author Organization [place] Address [address] [place] [address] Phone Care Team Providers Name Role Phone Billow Unavailable Unavailable Allergies No information. Encounters No information. Medications date description facility 20220212 Tamsulosin hydrochloride 0.4 MG Oral Ca psule [facility] 20220212 Cholecalciferol 2000 UNT Oral Capsule [facility] 20220212 red yeast rice 600 MG Oral Capsule [facility] 20220212 Omeprazole 20 MG Enteric Coated Capsule [facility] Problems date description facility 20220212 Dorsalgia, unspecified [facility] Procedures date description facility 20220212 General Physician [facility] 20220212 [facility] 20220212 Diagnosis [facility] Results No information. Vital Signs date measurement value source 20220212 weight_standard 194.36 lb 20220212 weight_metric 88.16 kg 20220212 temperature_standard 97.6 F 20220212 temperature_metric 36.44 C 20220212 height_standard 65 in 20220212 height_metric 165.1 cm 20220212 heart_rate 66 /min 20220212 BP_systolic 136 mm[Hg] 20220212 BP_diastolic 74 mm[Hg] 20220212 BMI 32.3 kg/m2
--- NOTE | 2022-02-15 11:05 | XRAY Report ---
PROCEDURE: Chest 1 View X-Ray INDICATIONS: Chest pain TECHNIQUE: One view of the chest was acquired. COMPARISON: Correlation is made with prior CT, 12/28/2021. FINDINGS: Surgical changes and devices: None. Lungs and pleura: No pleural effusions or pneumothorax. Lungs are clear. Mediastinum: Mediastinal contours appear normal. Heart size is normal. Calcification is seen of th e aortic arch. Bones and chest wall: No suspicious bony lesions. Age-appropriate degenerative changes are seen. O verlying soft tissues appear unremarkable. IMPRESSION: No acute cardiopulmonary process is seen. Reviewed by: Bradley Kearney MD on 02/15/2022 10:03 AM ARA Approved by: Bradley Kearney MD on 02/15/2022 10:03 AM ARA Station ID: [id number]
[2022-02-15 11:12] LABS: ALBUMIN 4.1 g/dL (3.2-5.5); ALBUMIN/GLOBULIN RATIO 1.4 (1.0-2.2); BILIRUBIN,TOTAL 0.8 mg/dL (0.2-1.0); CALCIUM 9.7 mg/dL (8.5-10.3); CREATININE 1.1 mg/dL (0.6-1.2)
--- NOTE | 2022-02-15 11:36 | ED Physician Documentation ---
PD HPI CHEST PAIN - Stated complaint Stated Complaint: CHEST DISCOMFORT - Chief complaint Chief Complaint: Cardiac - History obtained from History obtained from: Patient - History of Present Illness Timing - onset: Today, Last night (episode of chest pain across front last night for 5-10 minutes while just sitting. Then went away. Feeling okay through night and then tightness feeling across chest again this morning while doing light activity of lifting some small cement blocks. Was not doing exetional/aerobic activity.) Timing - onset during: Rest, Light activity (lifting) Timing - details: Abrupt onset, Now resolved (lasting 5-10 minutes each time.) Quality: Pressure, Aching, Pain Location: Substernal, Left chest, Right chest Associated symptoms: No: Shortness of air, Diaphoresis, Nausea, Feeling faint / dizzy, General Weakness Similar symptoms before: Has not had sx before Recently seen: Not recently seen Review of Systems Constitutional: denies: Fever, Chills Nose: denies: Rhinorrhea / runny nose, Congestion Throat: denies: Sore throat Cardiac: denies: Palpitations, Pedal edema, Calf pain Respiratory: reports: Cough (mild cough the past 2 days without fever, sore throat, dyspnea.). denies: Dyspnea, Wheezing GI: denies: Abdominal Pain, Nausea, Vomiting Skin: denies: Rash, Lesions Neurologic: denies: Focal weakness, Numbness, Near syncope PD PAST MEDICAL HISTORY - Past Medical History Cardiovascular: Hypertension, High cholesterol Respiratory: Sleep apnea Neuro: None Endocrine/Autoimmune: None GI: GERD, Colon polyps, Other : None HEENT: None Psych: Depression Musculoskeletal: None Derm: None - Past Surgical History Past Surgical History: Yes General: Colonoscopy HEENT: Rhinoplasty - Present Medications Home Medications: Ambulatory Orders Medication Instructions Recorded Confirmed Multivitamin [Daily Multiple 1 tab PO DAILY 01/18/20 09/29/20 Vitamin] Diphenhydramine HCl/Zinc Acet 28.3 gm TP DAILY PRN 01/19/20 09/29/20 [Benadryl Itch Stopping Crm] Red Yeast Rice 600 mg PO DAILY 01/19/20 09/29/20 Famotidine [Pepcid] 20 mg PO DAILY 09/29/20 09/29/20 Mometasone Furoate [Nasonex] 1 spray NS BID #1 spray.pump 09/29/20 Meclizine [Antivert] 25 mg PO Q6H PRN #30 tablet 10/11/20 - Allergies Allergies/Adverse Reactions: Allergies Allergy/AdvReac Type Severity Reaction Status Date / Time No Known Drug Allergies Allergy Verified 02/15/22 10:36 - Social History Does the pt smoke?: No Smoking Status: Former smoker Does the pt drink ETOH?: Yes Does the pt have substance abuse?: Yes - Immunizations Immunizations are current?: No Immunizations: TDAP >10years/unknown - POLST Patient has POLST: No PD ED PE NORMAL - Vitals Vital signs reviewed: Yes - General General: Alert and oriented X 3, No acute distress, Well developed/nourished - Neck Neck: Supple, no meningeal sign, No adenopathy - Cardiac Cardiac: RRR, No murmur - Respiratory Respiratory: Clear bilaterally, Other (no chestwall tenderness. ) - Abdomen Abdomen: Soft, Non tender - Back Back: No CVA TTP - Derm Derm: Normal color, Warm and dry - Extremities Extremities: No tenderness to palpate, Normal ROM s pain, No edema, No calf tenderness / cord - Neuro Neuro: Alert and oriented X 3, No motor deficit, Normal speech - Psych Psych: Normal mood, Normal affect Results - Vitals Vitals: Vital Signs - 24 hr 02/15/22 02/15/22 02/15/22 10:30 11:41 12:23 Temperature 36.2 C L 36.5 C Heart Rate 72 69 65 Respiratory 16 16 12 Rate Blood Pressure 131/72 H 120/68 O2 Saturation 96 96 96 Oxygen O2 Source Room air - EKG (time done) 10:31 Rate: Rate (enter#) (77) Rhythm: NSR [place]: Normal Intervals: Normal IN Ischemia: Normal ST segments, ST depression (mild anteriorly similar to 10/11/20.). No: ST elevation c/w ischemia - Labs Labs: Laboratory Tests 02/15/22 02/15/22 02/15/22 10:51 10:51 10:51 WBC 6.3 RBC 5.09 Hgb 15.5 Hct 44.4 MCV 87.2 MCH 30.5 MCHC 34.9 RDW 13.6 Plt Count 225 MPV 9.2 Neut # (Auto) 4.2 Lymph # (Auto) 1.3 L [place] # (Auto) 0.5 Eos # (Auto) 0.4 Baso # (Auto) 0.0 Absolute Nucleated RBC 0.00 Nucleated RBC % 0.0 Sodium 138 Potassium 4.0 Chloride 101 Carbon Dioxide 25 Anion Gap 12.0 BUN 19 Creatinine 1.1 Estimated GFR (MDRD) 66 L Glucose 110 H Calcium 9.7 Total Bilirubin 0.8 AST 30 ALT 65 H Alkaline Phosphatase 60 Troponin I High Sens 5.1 Total Protein 7.0 Albumin 4.1 Globulin 2.9 Albumin/Globulin Ratio 1.4 Lipase 47 - Rads (name of study) chest xray Radiology: Prelim report reviewed (no acute findings. ), See rad report PD MEDICAL DECISION MAKING - ED course Complexity details: reviewed results, considered differential (might be some chest muscular pain related to recent cough for 2 days. No signs of ACS nor acute lung process on CXR, ECG, trop. ), d/w patient Departure - Departure Disposition: 01 Home, Self Care Clinical Impression: Chest pain Condition: Stable Instructions: ED Chest Pain Atypical Unkn Cause Follow-Up: Cintia Leal DO [Primary Care Provider] - Comments: Your EKG, chest x-ray, blood tests are normal here without any signs of fluid in the lungs, around the lungs, pneumothorax, heart attack or heart failure. It does not seem to be abdominal in origin. At this point I presume some chest wall muscle strain or such. I would suggest some Tylenol or ibuprofen a few times daily regularly for the next 3 to 5 days and then continue as needed after that. Recheck if increased pains or trouble breathing. The cough you are having may have caused some inflammation through the chest wall. Follow-up if the cough is worsening or other concerns. Discharge Date/Time: 02/15/22 12:23
[2022-02-15] MEDS: ACETAMINOPHEN 325 MG TABLET PO STA (12:10)
[2022-02-15 12:24] VITALS: BP 120/68
== END 2022-02-15 12:23 | disposition home or self-care (01) ==
LOC: ED 10:25
DX: R07.9 Chest pain, unspecified (principal); I10 Essential (primary) hypertension; Z87.891 Personal history of nicotine dependence
CPT/HCPCS: 36415; 71045; 80053; 83690; 84484; 85025; 93005; 99284; A9270

== ENCOUNTER 2022-08-18 08:22 | Outpatient (CLI) | payer MEDICARE, OTHER ==
[2022-08-18 08:43] LABS: HCT - HEMATOCRIT 45.9 % (42.0-52.0); HGB - HEMOGLOBIN 15.7 g/dL (14.0-18.0); MEAN CORPUSCULAR HEMOGLOBIN 30.6 pg (27.0-31.0); MEAN CORPUSCULAR HGB CONC 34.2 g/dL (32.0-36.0); MEAN CORPUSCULAR VOLUME 89.5 fL (80.0-94.0); MEAN PLATELET VOLUME 9.3 fL (7.4-11.4); RED BLOOD COUNT 5.13 10^6/uL (4.70-6.10); RED CELL DISTRIBUTION WIDTH 14.2 % (12.0-15.0); WHITE BLOOD COUNT 6.5 x10^3/uL (4.8-10.8)
[2022-08-18 09:09] LABS: ALBUMIN 4.1 g/dL (3.2-5.5); ALBUMIN/GLOBULIN RATIO 1.4 (1.0-2.2); ALKALINE PHOSPHATASE 66 IU/L (42-121); ALT ALANINE AMINOTRANSFERASE 32 IU/L (10-60); AST ASPARTATE AMINOTRANSFERASE 22 IU/L (10-42); BILIRUBIN,TOTAL 0.5 mg/dL (0.2-1.0); BUN - BLOOD UREA NITROGEN 32 mg/dL (6-20); CALCIUM 9.6 mg/dL (8.5-10.3); CARBON DIOXIDE - CO2 23 mmol/L (21-32); CHLORIDE 106 mmol/L (101-111); CHOL/HDL RATIO 4.9 (<5.0); CHOLESTEROL 258 mg/dL; CREATININE 0.9 mg/dL (0.6-1.2); GFR - MDRD 83 (>89); GLUCOSE 106 mg/dL (70-100); HDL CHOLESTEROL 53 mg/dL; LDL CHOLESTEROL,CALCULATED 194 mg/dL; LDL/HDL RATIO 3.7 (<3.6); POTASSIUM 4.3 mmol/L (3.5-5.0); SODIUM 136 mmol/L (135-145); TOTAL PROTEIN 7.1 g/dL (6.7-8.2); TRIGLYCERIDES 55 mg/dL; URIC ACID 6.4 mg/dL (2.6-7.2); VLDL CHOLESTEROL 11 mg/dL
[2022-08-18 09:10] LABS: CRP - C-REACTIVE PROTEIN < 1.0 mg/dL (0-1.0)
[2022-08-18 09:14] LABS: RHEUMATOID FACTOR NEGATIVE (Negative)
[2022-08-19 19:08] LABS: ANTI-DNA (DS) AB QN <1 IU/mL (0-9); CENTROMERE B ANTIBODIES <0.2 AI (0.0-0.9); CHROMATIN ANTIBODIES <0.2 AI (0.0-0.9); JO-1 AB <0.2 AI (0.0-0.9); RIBOSOMAL P ANTIBODIES <0.2 AI (0.0-0.9); RNP ANTIBODIES <0.2 AI (0.0-0.9); SCLERODERMA-70 ANTIBODIES <0.2 AI (0.0-0.9); SJOGREN'S ANTI-SS-A <0.2 AI (0.0-0.9); SJOGREN'S ANTI-SS-B <0.2 AI (0.0-0.9); SMITH ANTIBODIES <0.2 AI (0.0-0.9); SMITH/RNP ANTIBODIES <0.2 AI (0.0-0.9)
[2022-08-20 21:07] LABS: CYCLIC CITRULLINATED PEP IGG/A 5 units (0-19)
== END 2022-08-18 08:23 | disposition home or self-care (01) ==
LOC: LAB 08:22
PROVIDERS: ATTEND Nurse Practitioner Family
DX: M25.551 Pain in right hip (principal); M54.50 Low back pain, unspecified; L40.8 Other psoriasis; E78.5 Hyperlipidemia, unspecified
CPT/HCPCS: 36415; 80053; 80061; 83721; 84550; 85027; 85651; 86140; 86200; 86225; 86235; 86430

== ENCOUNTER 2023-01-16 09:14 | Outpatient (CLI) | payer MEDICARE, OTHER ==
--- NOTE | 2023-01-16 13:58 | XRAY Report ---
PROCEDURE: Hand 3 View RT INDICATIONS: HAND PAIN,RIGHT TECHNIQUE: 3 views of the hand(s) acquired. COMPARISON: None FINDINGS: Bones: No fractures or dislocations. No suspicious bony lesions. Prominent first CMC arthritic bao nges are present. Scattered IP degenerative narrowing. Soft tissues: No suspicious soft tissue calcifications. IMPRESSION: Arthritic changes as above. No visualized acute fracture or dislocation. However, occult injury canno t be excluded. Recommend short interval imaging follow-up in 7-10 days as clinically indicated for ad ditional evaluation. Reviewed by: Afia Hsieh MD on 01/16/2023 1:56 PM PST Approved by: Afia Hsieh MD on 01/16/2023 1:[address] [facility] Station ID: [id number]
== END 2023-01-16 09:15 | disposition home or self-care (01) ==
LOC: DI 09:14
PROVIDERS: ATTEND Nurse Practitioner Family
DX: M19.041 Primary osteoarthritis, right hand (principal)

== ENCOUNTER 2023-01-27 10:17 | Outpatient (CLI) | payer MEDICARE, OTHER ==
--- NOTE | 2023-01-27 11:22 | XRAY Report ---
PROCEDURE: Hand 2 View RT INDICATIONS: PAIN IN RIGHT HAND TECHNIQUE: 2 views of the hand(s) acquired. COMPARISON: 01/16/2023 FINDINGS: Bones: No fractures or dislocations. No suspicious bony lesions. Advanced degenerative arthritis at the first carpometacarpal joint. Triscaphe joint degenerative arthritis. Degenerative arthritis in t he hand predominantly affects the thumb IP joint and second DIP joint. Soft tissues: No suspicious soft tissue calcifications. IMPRESSION: 1. Degenerative arthritis of the wrist and hand. Findings include severe degenerative arthritis at th e base of the thumb. 2. No evidence acute fracture or dislocation. Reviewed by: Cas Hayward MD on 01/27/2023 11:20 AM PST Approved by: Csa Hayward MD on 01/27/2023 11:20 AM PST Station ID: [id number]
== END 2023-01-27 10:18 | disposition home or self-care (01) ==
LOC: DI 10:17
PROVIDERS: ATTEND Nurse Practitioner Family
DX: M18.11 Unilateral primary osteoarthritis of first carpometacarpal joint, right hand (principal); M19.041 Primary osteoarthritis, right hand; M19.031 Primary osteoarthritis, right wrist

== ENCOUNTER 2023-02-04 11:25 | Outpatient (CLI) | payer MEDICARE, OTHER ==
[2023-02-04 11:46] LABS: BASOPHILS % (AUTO) 0.5 %; EOSINOPHILS # (AUTO) 0.4 10^3/uL (0.0-0.7); HCT - HEMATOCRIT 45.6 % (42.0-52.0); HGB - HEMOGLOBIN 15.2 g/dL (14.0-18.0); LYMPHOCYTES # (AUTO) 1.7 10^3/uL (1.5-3.5); LYMPHOCYTES % (AUTO) 26.1 %; MEAN CORPUSCULAR HEMOGLOBIN 30.2 pg (27.0-31.0); MEAN CORPUSCULAR HGB CONC 33.3 g/dL (32.0-36.0); MEAN CORPUSCULAR VOLUME 90.5 fL (80.0-94.0); MEAN PLATELET VOLUME 9.6 fL (7.4-11.4); MONOCYTES # (AUTO) 0.6 10^3/uL (0.0-1.0); MONOCYTES % (AUTO) 8.9 %; NEUTROPHILS # (AUTO) 3.8 10^3/uL (1.5-6.6); NEUTROPHILS % (AUTO) 58.2 %; PLT - PLATELET COUNT 189 10^3/uL (130-450); RED BLOOD COUNT 5.04 10^6/uL (4.70-6.10); RED CELL DISTRIBUTION WIDTH 13.1 % (12.0-15.0); WHITE BLOOD COUNT 6.5 x10^3/uL (4.8-10.8)
[2023-02-04 12:10] LABS: ESTIMATED AVERAGE GLUCOSE 123 mg/dL (70-100); HEMOGLOBIN A1c% 5.9 % (4.27-6.07)
[2023-02-04 12:16] LABS: THYROID STIMULATING HORMONE 1.19 uIU/mL (0.34-5.60)
[2023-02-04 12:18] LABS: ALBUMIN 3.8 g/dL (3.2-5.5); ALBUMIN/GLOBULIN RATIO 1.3 (1.0-2.2); ALKALINE PHOSPHATASE 44 IU/L (42-121); ALT ALANINE AMINOTRANSFERASE 43 IU/L (10-60); AST ASPARTATE AMINOTRANSFERASE 24 IU/L (10-42); BILIRUBIN,TOTAL 0.5 mg/dL (0.2-1.0); BUN - BLOOD UREA NITROGEN 16 mg/dL (6-20); CALCIUM 9.8 mg/dL (8.5-10.3); CARBON DIOXIDE - CO2 24 mmol/L (21-32); CHLORIDE 106 mmol/L (101-111); CHOLESTEROL 124 mg/dL; CREATININE 1.1 mg/dL (0.6-1.2); GFR - MDRD 66 (>89); GLUCOSE 112 mg/dL (70-100); HDL CHOLESTEROL 41 mg/dL; LDL CHOLESTEROL,CALCULATED 72 mg/dL; LDL/HDL RATIO 1.8 (<3.6); POTASSIUM 4.7 mmol/L (3.5-5.0); SODIUM 137 mmol/L (135-145); TOTAL PROTEIN 6.8 g/dL (6.7-8.2); TRIGLYCERIDES 53 mg/dL; VLDL CHOLESTEROL 11 mg/dL
== END 2023-02-04 11:26 | disposition home or self-care (01) ==
LOC: LAB 11:25
PROVIDERS: ATTEND Nurse Practitioner Family
DX: I10 Essential (primary) hypertension (principal); E78.5 Hyperlipidemia, unspecified; E66.9 Obesity, unspecified; Z12.5 Encounter for screening for malignant neoplasm of prostate; N40.0 Benign prostatic hyperplasia without lower urinary tract symptoms
CPT/HCPCS: 36415; 80053; 80061; 83036; 84443; 85025; G0103; 83721; 84153

== ENCOUNTER 2023-06-16 06:47 | Outpatient (CLI) | payer MEDICARE, OTHER ==
--- NOTE | 2023-06-16 15:50 | Ultrasound Report ---
PROCEDURE: Aorta Screening INDICATIONS: FORMER SMOKER, CAROTID BRUIT TECHNIQUE: Real time scanning was performed of the aorta and iliac arteries, with image documentatio n. COMPARISON: None. FINDINGS: Aorta: Proximal aortic diameter measures 2.6 x 2.4 cm. Mid-aorta measures 2.2 x 2.3 cm. Distal aor tic diameter is 1.0 x 2.0 cm. Iliac arteries: Right common iliac artery measures 1.2 x 1.2 cm. Left common iliac artery measures 1.1 x 1.1 cm. Possible right common iliac artery stenosis, partially secured by artifact. IMPRESSION: No aneurysmal dilation. Recommended intervals for follow-up imaging of ectatic aortas and abdominal aortic aneurysms, per ACR consensus guidelines: 2.5-2.9 cm: 5 years 3.0-3.4 cm: 3 years 3.5-3.9 cm: 2 years 4.0-4.4 cm: 1 year 4.5-4.9 cm: 6 months + endovascular referral 5.0-5.5 cm: 3-6 months + endovascular referral Reviewed by: Afia Hsieh MD on 06/16/2023 3:48 PM PDT Approved by: Afia Hsieh MD on 06/16/2023 3:48 PM PDT Station ID: [id number]
--- NOTE | 2023-06-16 15:51 | Ultrasound Report ---
PROCEDURE: Carotid Doppler Complete INDICATIONS: FORMER SMOKER, CAROTID BRUIT TECHNIQUE: Color and pulse Doppler interrogation was performed of both carotid systems, with image documentation and velocity measurements. COMPARISON: None. FINDINGS: Right side: Brachial blood pressure: 129/69 mm Hg. Common carotid artery peak systolic velocity: 64 cm/sec. Internal carotid artery peak systolic velocity: 113 cm/sec. Internal carotid artery end diastolic velocity: 35 cm/sec. External carotid artery peak systolic velocity: 110 cm/sec. ICA/CCA peak systolic ratio: 1.8 . Guerrero scale imaging description: Moderate to severe plaque Percent internal carotid artery stenosis: Less than 50%. Vertebral artery: Flow direction is antegrade. Left side: Brachial blood pressure: 129/81 mm Hg. Common carotid artery peak systolic velocity: 64 cm/sec. Internal carotid artery peak systolic velocity: 97 cm/sec. Internal carotid artery end diastolic velocity: 32 cm/sec. External carotid artery peak systolic velocity: 172 cm/sec. ICA/CCA peak systolic ratio: 1.5 . Guerrero scale imaging description: Moderate plaque Percent internal carotid artery stenosis: Less than 50%. Vertebral artery: Flow direction is antegrade. IMPRESSION: 1. In the right internal carotid artery, there is less than 50% stenosis based on peak systolic [place] criteria. 2. In the left internal carotid artery, there is less than 50 percent stenosis based on peak systolic velocity criteria. 3. Antegrade blood flow within the right vertebral artery. 4. Antegrade blood flow within the left vertebral artery. The estimate of stenosis included in the report of the imaging study was calculated using the [facility]-end orsed standards of carotid artery stenosis. Reviewed by: Afia Hsieh MD on 06/16/2023 3:50 PM PDT Approved by: Afia Hsieh MD on 06/16/2023 3:50 PM PDT Station ID: [id number]
== END 2023-06-16 06:48 | disposition home or self-care (01) ==
LOC: DI 06:47
PROVIDERS: ATTEND Nurse Practitioner Family
DX: I65.23 Occlusion and stenosis of bilateral carotid arteries (principal); R09.89 Other specified symptoms and signs involving the circulatory and respiratory systems; R73.03 Prediabetes; I10 Essential (primary) hypertension; Z87.891 Personal history of nicotine dependence; E78.5 Hyperlipidemia, unspecified
CPT/HCPCS: 93880

== ENCOUNTER 2023-07-23 08:30 | Emergency (ER) | payer MEDICARE, OTHER ==
--- OUTSIDE RECORDS SUMMARY | 2023-07-23 09:08 | EXTERNAL MEDICAL SUMMARY RPT | Continuity of Care Document ---
Author Name Unknown Address [address] [place] [address] Phone Organization [place] Address [address] [place] [address] Phone Care Team Providers Care Media Reporter Name Role Phone Cintia Leal Unavailable Unavailable Medications date description facility 2023-07-01 00:00 [facility] 2023-07-21 00:00 [facility] Problems date description facility 2023-07-01 00:00 Hypertension [facility] 2023-07-01 00:00 Psoriasis and similar disorders [facility] 2023-07-21 10:23 Spondylosis without myelopathy or radiculopathy, lumbar dipika [facility] Results/Labs test date facility value unit notes Social History date description facility 2023-07-01 00:00 Ex-smoker (finding) [facility] Vital Signs date measurement value units 2023-07-01 00:00 BMI 33.3 kg/m2 2023-07-01 00:00 BP_diastolic 94 mmHg 2023-07-01 00:00 BP_systolic 156 mmHg 2023-07-01 00:00 heart_rate 51 /min 2023-07-01 00:00 height_metric 165.1 cm 2023-07-01 00:00 height_standard 65 in 2023-07-01 00:00 o2_saturation 97 % 2023-07-01 00:00 temperature_metric 36.72 C 2023-07-01 00:00 temperature_standard 98.1 F 2023-07-01 00:00 weight_metric 90.77 kg 2023-07-01 00:00 weight_standard 200.11 lb 2023-07-21 00:00 BP_diastolic 77 mmHg 2023-07-21 00:00 BP_systolic 158 mmHg 2023-07-21 00:00 heart_rate 58 /min 2023-07-21 00:00 o2_saturation 97 % 2023-07-21 00:00 respiration_rate 20 /min 2023-07-21 00:00 temperature_metric 36.5 C 2023-07-21 00:00 temperature_standard 97.7 F
[2023-07-23 09:54] LABS: ALBUMIN 4.3 g/dL (3.2-5.5); ALBUMIN/GLOBULIN RATIO 1.7 (1.0-2.2); BILIRUBIN,TOTAL 0.5 mg/dL (0.2-1.0); CALCIUM 10.1 mg/dL (8.5-10.3); POTASSIUM 4.4 mmol/L (3.5-4.5); TOTAL PROTEIN 6.9 g/dL (6.4-8.9)
[2023-07-23 10:01] LABS: BASOPHILS # (AUTO) 0.1 10^3/uL (0.0-0.1); BASOPHILS % (AUTO) 0.6 %; EOSINOPHILS # (AUTO) 0.7 10^3/uL (0.0-0.7); EOSINOPHILS % (AUTO) 8.8 %; HCT - HEMATOCRIT 45.5 % (42.0-52.0); HGB - HEMOGLOBIN 15.3 g/dL (14.0-18.0); LYMPHOCYTES # (AUTO) 1.9 10^3/uL (1.5-3.5); LYMPHOCYTES % (AUTO) 24.8 %; MEAN CORPUSCULAR HEMOGLOBIN 30.9 pg (27.0-31.0); MEAN CORPUSCULAR HGB CONC 33.6 g/dL (32.0-36.0); MEAN CORPUSCULAR VOLUME 91.9 fL (80.0-94.0); MEAN PLATELET VOLUME 10.3 fL (7.4-11.4); MONOCYTES # (AUTO) 0.8 10^3/uL (0.0-1.0); MONOCYTES % (AUTO) 9.8 %; NEUTROPHILS # (AUTO) 4.3 10^3/uL (1.5-6.6); NEUTROPHILS % (AUTO) 55.2 %; PLT - PLATELET COUNT 193 10^3/uL (130-450); RED BLOOD COUNT 4.95 10^6/uL (4.70-6.10); RED CELL DISTRIBUTION WIDTH 13.4 % (12.0-15.0); WHITE BLOOD COUNT 7.7 x10^3/uL (4.8-10.8)
--- NOTE | 2023-07-23 10:13 | ED Physician Documentation ---
History of Present Illness - Stated complaint Stated Complaint: HIGH BP/LIGHT HEADED - Chief complaint Chief Complaint: General - History obtained from History obtained from: Patient - Additonal information Additional information: Patient is a 73-year-old male with a history of hypertension presenting for evaluation of elevated blood pressure readings. He states yesterday he went to his spine doctor for an injection and they noted that his blood pressure was elevated. They recommended that he monitor his blood pressure readings which she has been doing over the past 2 days and has noticed increased readings. He denies feeling dizzy or lightheaded but reports feeling antsy. He denies chest pain, visual disturbances, shortness of air, abdominal symptoms. He is on losartan and has been taking this regularly. He usually takes his dose in the morning. He has taken it today. He currently denies any symptoms. Review of Systems Constitutional: denies: Fever Cardiac: denies: Chest pain / pressure Respiratory: denies: Dyspnea GI: denies: Abdominal Pain : denies: Dysuria Neurologic: denies: Headache PD PAST MEDICAL HISTORY - Past Medical History Past Medical History: Yes Cardiovascular: Hypertension, High cholesterol Respiratory: Sleep apnea Neuro: None Endocrine/Autoimmune: None GI: GERD, Colon polyps, Other : None HEENT: None Psych: Depression Musculoskeletal: None Derm: None - Past Surgical History Past Surgical History: Yes General: Colonoscopy HEENT: Rhinoplasty - Present Medications Home Medications: Ambulatory Orders Medication Instructions Recorded Confirmed Multivitamin [Daily Multiple 1 tab PO DAILY 01/18/20 07/23/23 Vitamin] Latanoprost 0.005% Ophth Drops 1 drops OP DAILY 07/23/23 07/23/23 [Xalatan Ophth Drops] Losartan Potassium 100 mg PO DAILY 07/23/23 07/23/23 Omeprazole Magnesium 20 mg PO DAILY 07/23/23 07/23/23 Rosuvastatin Calcium [Crestor] 10 mg PO DAILY 07/23/23 07/23/23 Tamsulosin [Flomax] 1 cap PO DAILY 07/23/23 07/23/23 timoloL 0.5% OPHTH DROPS(10ML) 1 drops OP DAILY 07/23/23 07/23/23 [Timoptic 0.5% Ophth Drops] - Allergies Allergies/Adverse Reactions: Allergies Allergy/AdvReac Type Severity Reaction Status Date / Time No Known Drug Allergies Allergy Verified 02/15/22 10:36 - Social History Does the pt smoke?: No Smoking Status: Never smoker Does the pt drink ETOH?: Yes Does the pt have substance abuse?: Yes - Immunizations Immunizations are current?: No Immunizations: TDAP >10years/unknown - POLST Patient has POLST: No PD ED PE NORMAL - General General: Alert and oriented X 3, No acute distress, Well developed/nourished - HEENT HEENT: Atraumatic, Moist mucous membranes - Neck Neck: Supple, no meningeal sign - Cardiac Cardiac: RRR, No murmur, Strong equal pulses - Respiratory Respiratory: No respiratory distress, Clear bilaterally - Abdomen Abdomen: Soft, Non tender - Derm Derm: Warm and dry - Extremities Extremities: No edema - Neuro Neuro: Alert and oriented X 3, No motor deficit, No sensory deficit, Normal speech Results - Vitals Vitals: Vital Signs - 24 hr 07/23/23 07/23/23 07/23/23 08:45 10:18 10:22 Temperature 36.5 C 36.8 C 36.6 C Heart Rate 65 54 L 62 Respiratory 14 20 15 Rate Blood Pressure 137/76 H 144/80 H 144/80 H O2 Saturation 97 96 98 Oxygen O2 Source Room air - EKG (time done) 0940 EKG releavant findings:: EKG personally interpreted by author of this note. Relevant findings are: Rate 54, sinus bradycardia, no STEMI Rate: Rate (enter#) (54) Rhythm: Sinus bradycardia Intervals: No: Prolonged QT Ischemia: No: ST elevation c/w ischemia - Labs Labs: Laboratory Tests 07/23/23 07/23/23 09:33 09:33 WBC 7.7 RBC 4.95 Hgb 15.3 Hct 45.5 MCV 91.9 MCH 30.9 MCHC 33.6 RDW 13.4 Plt Count 193 MPV 10.3 Neut # (Auto) 4.3 Lymph # (Auto) 1.9 [place] # (Auto) 0.8 Eos # (Auto) 0.7 Baso # (Auto) 0.1 Absolute Nucleated RBC 0.00 Nucleated RBC % 0.0 Sodium 137 Potassium 4.4 Chloride 105 Carbon Dioxide 27 Anion Gap 5.0 L BUN 14 Creatinine 1.0 Estimated GFR (MDRD) 73 L Glucose 115 H Calcium 10.1 Total Bilirubin 0.5 AST 33 ALT 59 Alkaline Phosphatase 45 Total Protein 6.9 Albumin 4.3 Globulin 2.6 Albumin/Globulin Ratio 1.7 PD Medical Decision Making - ED course Complexity details: reviewed results, re-evaluated patient ED course: Patient is a 73-year-old male presenting for evaluation of elevated blood pressure readings. Here he is asymptomatic. He reports vague symptoms earlier of feeling antsy. Thus I did obtain screening labs with a CBC and chemistries without any significant findings. His EKG is also reviewed with no signs of arrhythmia. As he is asymptomatic. Do not think he needs further treatment and recommended close follow-up with his PCP regarding his blood pressure readings. Patient is also counseled on concerning symptoms to return for. No symptoms to suggest CVA, ACS, CHF. Departure - Departure Disposition: 01 Home, Self Care Clinical Impression: Hypertension Qualifiers: Hypertension type: primary hypertension Qualified Code(s): I10 - Essential (primary) hypertension Condition: Stable Instructions: ED HTN Established Follow-Up: Brittany Guy ARNP [Primary Care Provider] - Comments: Your labs today are reassuring with normal kidney function and electrolytes. Please follow-up with your primary care provider regarding your blood pressure readings. You may need adjustment of your medications which should be done in the outpatient setting. Return to the emergency department if you develop any worsening symptoms such as chest pain. Forms: PCP List Discharge Date/Time: 07/23/23 10:29
[2023-07-23 11:05] VITALS: BP 144/80; O2SAT 98
== END 2023-07-23 10:29 | disposition home or self-care (01) ==
LOC: ED 08:30
DX: I10 Essential (primary) hypertension (principal)
CPT/HCPCS: 36415; 80053; 85025; 93005; 99283; 99284

== ENCOUNTER 2023-11-26 08:25 | Outpatient (CLI) | payer MEDICARE, OTHER ==
--- NOTE | 2023-11-26 11:02 | CT Report ---
PROCEDURE: Lung Cancer Screen INDICATIONS: FORMER SMOKER TECHNIQUE: A CT scan of the chest was performed. Intravenous contrast media was not administered. Images were re corded and evaluated at appropriate window settings. Reformats: axial MIP of the chest, coronal and s agittal. For radiation dose reduction, the following was used: automated exposure control, adjustment of mA and/or kV according to patient size. COMPARISON: 12/28/2021. FINDINGS: Image quality: Excellent. Prior cancer history: None given Lungs and pleura: No pleural effusions. No pneumothorax. Pulmonary nodules are as follows (all descr ibed on series 3): 1. Stable 4 mm pulmonary nodule, right upper lobe, current image 84 and previous image 77/4. 2. Unchanged small fissural nodule, anterior right minor fissure, current image 193 and previous imag e 189. 3. Right middle lobe 2 mm pulmonary nodule, current image 199 and previous image 186. 4. Unchanged minimal subpleural thickening, left upper lobe, image 187 and previous image 187 5. 2 mm subpleural posterior medial left lower lobe pulmonary nodule, unchanged, current image 180 an d previous image 170. No new or increasing pulmonary nodules. Mediastinum: Heart size is normal. No pericardial effusion. Extensive coronary artery calcifications. No large vessel abnormality. No mediastinal adenopathy by size criteria. Chest wall and lower neck: Thyroid is unremarkable. No axillary or supraclavicular adenopathy by size . Bones: No aggressive osseous abnormality. Upper Abdomen: Unremarkable. IMPRESSION: Lung RAD: 1 - Negative. Recommendation: Continue annual screening in 12 Months with LDCT Non-Lung Significant Findings: Coronary Arterial Calcification - Moderate or Severe. Reviewed by: Cas Hayward MD on 11/26/2023 11:00 AM PST Approved by: Cas Hayward MD on 11/26/2023 11:00 AM PST Station ID: [id number]
== END 2023-11-26 08:26 | disposition home or self-care (01) ==
LOC: DI 08:25
PROVIDERS: ATTEND Nurse Practitioner Family
DX: Z12.2 Encounter for screening for malignant neoplasm of respiratory organs (principal); I25.10 Atherosclerotic heart disease of native coronary artery without angina pectoris; Z87.891 Personal history of nicotine dependence

== ENCOUNTER 2024-01-11 09:01 | Outpatient (CLI) | payer MEDICARE, OTHER ==
[2024-01-11 09:42] LABS: ALBUMIN 4.2 g/dL (3.2-5.5); ALBUMIN/GLOBULIN RATIO 1.6 (1.0-2.2); ALKALINE PHOSPHATASE 50 IU/L (42-121); ALT ALANINE AMINOTRANSFERASE 32 IU/L (10-60); AST ASPARTATE AMINOTRANSFERASE 18 IU/L (10-42); BILIRUBIN,TOTAL 0.5 mg/dL (0.2-1.0); BUN - BLOOD UREA NITROGEN 16 mg/dL (6-20); CALCIUM 9.5 mg/dL (8.5-10.3); CARBON DIOXIDE - CO2 26 mmol/L (21-32); CHLORIDE 108 mmol/L (101-111); CHOLESTEROL 145 mg/dL; CREATININE 0.9 mg/dL (0.6-1.3); GFR - MDRD 83 (>89); GLUCOSE 112 mg/dL (74-104); HDL CHOLESTEROL 49 mg/dL; LDL CHOLESTEROL,CALCULATED 71 mg/dL; LDL/HDL RATIO 1.4 (<3.6); POTASSIUM 4.7 mmol/L (3.5-4.5); SODIUM 140 mmol/L (135-145); TOTAL PROTEIN 6.8 g/dL (6.4-8.9); TRIGLYCERIDES 123 mg/dL (48-352); VLDL CHOLESTEROL 25 mg/dL
== END 2024-01-11 09:02 | disposition home or self-care (01) ==
LOC: LAB 09:01
PROVIDERS: ATTEND Internal Medicine Cardiovascular Disease
DX: E78.5 Hyperlipidemia, unspecified (principal); R93.1 Abnormal findings on diagnostic imaging of heart and coronary circulation
CPT/HCPCS: 36415; 80053; 80061; 83721

== ENCOUNTER 2024-05-05 13:13 | Outpatient (CLI) | payer MEDICARE, OTHER ==
--- NOTE | 2024-05-05 18:22 | CT Report ---
PROCEDURE: Lung Cancer Screen INDICATIONS: SMOKER TECHNIQUE: A CT scan of the chest was performed. Intravenous contrast media was not administered. Images were re corded and evaluated at appropriate window settings. Reformats: axial MIP of the chest, coronal and s agittal. For radiation dose reduction, the following was used: automated exposure control, adjustment of mA and/or kV according to patient size. COMPARISON: 11/26/2023, 12/28/2021 FINDINGS: Image quality: Excellent. Prior cancer history: None given Lungs and pleura: Pulmonary nodules are again seen: Right upper lobe, series 4 image 27, 4 mm, stable Mild pleural thickening can be seen on the right, as on series 4 image 65. The previously seen 2 mm right middle lobe nodule isn't well seen. Minimal subpleural thickening is seen on the left laterally, as on series 4 image 60. No new nodules are seen. No focal infiltrates are seen. No pneumothorax or pleural effusions can be seen. Mild underlying e mphysema this changes are seen, with subpleural bleb formation. Mediastinum: Heart size is normal. No pericardial effusion. Moderate coronary artery calcification is seen. There is calcification seen of the mitral valve annulus. No large vessel abnormality. No media stinal adenopathy by size criteria. There is a small hiatal hernia. Chest wall and lower neck: Thyroid is unremarkable. No axillary or supraclavicular adenopathy by size . Bones: No aggressive osseous abnormality. Upper Abdomen: Unremarkable. IMPRESSION: Pulmonary nodules are seen, which are each either stable or not as well seen on the curre nt study than on the prior. Underlying emphysematous changes are seen. Lung RAD: 2 - Benign. Recommendation: Additional imaging or previous study needed for comparison Additional findings: Moderate coronary calcification Small hiatal hernia Reviewed by: Bradley Kearney MD on 05/05/2024 5:21 PM ARA Approved by: Bradley Kearney MD on 05/05/2024 5:21 PM [email or web address] Station ID: [id number]
== END 2024-05-05 13:14 | disposition home or self-care (01) ==
LOC: DI 13:13
PROVIDERS: ATTEND Nurse Practitioner Family
DX: Z12.2 Encounter for screening for malignant neoplasm of respiratory organs (principal); R91.8 Other nonspecific abnormal finding of lung field; J43.9 Emphysema, unspecified; I25.10 Atherosclerotic heart disease of native coronary artery without angina pectoris; K44.9 Diaphragmatic hernia without obstruction or gangrene; Z87.891 Personal history of nicotine dependence

== ENCOUNTER 2024-07-24 08:42 | Emergency (ER) | payer MEDICARE, OTHER ==
--- NOTE | 2024-07-24 09:04 | ED Physician Documentation ---
History of Present Illness - Stated complaint Stated Complaint: DIZZY, FEELING OFF, HIGH BP READING - Chief complaint Chief Complaint: Cardiac - History obtained from History obtained from: Patient - History of Present Illness Timing: Today Pain level max: 0 Pain level now: 0 - Additonal information Additional information: 74-year-old male has a history of vertigo, states he woke up this morning and felt like the room was spinning. He states feels similar to prior episode of vertigo. Worse with turning his head to the right. No numbness or tingling. No weakness. No focal neurological deficits. No chest pain. No shortness of breath. Had an angioplasty back in January 2024. He is concerned about the stent.No abdominal pain. No back pain. No headache. No neck pain. No recent illnesses. No rhinorrhea, cough congestion or fevers. Review of Systems Constitutional: denies: Fever, Chills Ears: denies: Ear pain Nose: denies: Rhinorrhea / runny nose, Congestion Throat: denies: Sore throat Cardiac: denies: Chest pain / pressure, Palpitations Respiratory: denies: Dyspnea, Cough, Hemoptysis, Wheezing GI: denies: Abdominal Pain, Vomiting, Diarrhea Skin: denies: Rash Musculoskeletal: denies: Neck pain, Back pain Neurologic: denies: Focal weakness, Numbness, Syncope, Seizure, Confused, Head injury, LOC PD PAST MEDICAL HISTORY - Past Medical History Cardiovascular: Hypertension, High cholesterol Respiratory: Sleep apnea Neuro: None Endocrine/Autoimmune: None GI: GERD, Colon polyps, Other : None HEENT: None Psych: Depression Musculoskeletal: None Derm: None - Past Surgical History Past Surgical History: Yes General: Colonoscopy Cardiovascular: Angioplasty HEENT: Rhinoplasty - Present Medications Home Medications: Ambulatory Orders Medication Instructions Recorded Confirmed Multivitamin [Daily Multiple 1 tab PO DAILY 01/18/20 07/23/23 Vitamin] Latanoprost 0.005% Ophth Drops 1 drops OP DAILY 07/23/23 07/23/23 [Xalatan Ophth Drops] Losartan Potassium 100 mg PO DAILY 07/23/23 07/23/23 Omeprazole Magnesium 20 mg PO DAILY 07/23/23 07/23/23 Rosuvastatin Calcium [Crestor] 10 mg PO DAILY 07/23/23 07/23/23 Tamsulosin [Flomax] 1 cap PO DAILY 07/23/23 07/23/23 timoloL 0.5% OPHTH DROPS(10ML) 1 drops OP DAILY 07/23/23 07/23/23 [Timoptic 0.5% Ophth Drops] Meclizine HCl 25 mg PO Q6H PRN #30 tab 07/24/24 - Allergies Allergies/Adverse Reactions: Allergies Allergy/AdvReac Type Severity Reaction Status Date / Time No Known Drug Allergies Allergy Verified 07/24/24 08:46 - Social History Does the pt smoke?: No Smoking Status: Never smoker Does the pt drink ETOH?: Yes Does the pt have substance abuse?: Yes - Immunizations Immunizations are current?: No Immunizations: TDAP >10years/unknown - POLST Patient has POLST: No PD ED PE NORMAL - Vitals Vital signs reviewed: Yes - General General: Alert and oriented X 3, No acute distress, Well developed/nourished - HEENT HEENT: PERRL, EOMI, Ears normal, Moist mucous membranes, Pharynx benign - Neck Neck: Supple, no meningeal sign - Cardiac Cardiac: RRR, Strong equal pulses - Respiratory Respiratory: No respiratory distress, Clear bilaterally - Abdomen Abdomen: Soft, Non tender, Non distended - Back Back: No spinal TTP - Derm Derm: Warm and dry - Extremities Extremities: No edema, No calf tenderness / cord - Neuro Neuro: Alert and oriented X 3, 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 Ambulates with a steady gait. Negative Romberg. Normal [id number]-dups) Eye Opening: Spontaneous Motor: Obeys Commands Verbal: Oriented GCS Score: 15 - Psych Psych: Normal mood, Normal affect Results - Vitals Vitals: Vital Signs - 24 hr 07/24/24 07/24/24 07/24/24 08:46 10:00 11:00 Temperature 36.7 C Heart Rate 60 53 L 52 L Respiratory 30 H 12 16 Rate Blood Pressure 154/56 H 136/74 H 120/69 O2 Saturation 97 95 99 Oxygen O2 Source Room air - EKG (time done) 0856 EKG releavant findings:: EKG personally interpreted by author of this note. Relevant findings are: Rate: Rate (enter#) (53) Rhythm: NSR Rudyard: Normal Intervals: Normal TN - Labs Labs: Laboratory Tests 07/24/24 07/24/24 09:52 09:52 WBC 6.0 RBC 4.85 Hgb 14.4 Hct 42.5 MCV 87.6 MCH 29.7 MCHC 33.9 RDW 13.2 Plt Count 191 MPV 9.2 Neut # (Auto) 4.2 Lymph # (Auto) 1.1 L [place] # (Auto) 0.5 Eos # (Auto) 0.2 Baso # (Auto) 0.0 Absolute Nucleated RBC 0.00 Nucleated RBC % 0.0 Sodium 135 Potassium 4.3 Chloride 103 Carbon Dioxide 24 Anion Gap 8.0 BUN 16 Creatinine 1.0 Estimated GFR (MDRD) 73 L Glucose 119 H Calcium 9.7 Total Bilirubin 0.6 AST 21 ALT 35 Alkaline Phosphatase 55 Troponin I High Sens 5.3 Total Protein 7.1 Albumin 4.3 Globulin 2.8 Albumin/Globulin Ratio 1.5 Lipase 19 - Rads (name of study) cxr Relevant Findings:: Final report received, See rad report PD Medical Decision Making - ED course Complexity details: reviewed results, re-evaluated patient, considered differential, d/w patient ED course: No acute findings on laboratory testing, EKG. Symptoms resolved with meclizine. His symptoms are consistent with BPPV and his prior history of same. No evidence of acute stroke or cerebellar infarct. No indication for head CT at this time. Ambulating with a normal gait and without any assistive devices. Negative cerebellar testing. I will have him follow-up with his doctor for further care. Will prescribe meclizine for home. No vomiting. No fevers. Could be a small pleural effusion on chest x-ray, but would not cause his symptoms. Can follow-up with his doctor as needed for this. Patient counseled regarding signs and symptoms for which I believe and urgent re-evaluation would be necessary. Patient with good understanding of and agreement to plan and is comfortable going home at this time This document was made in part using voice recognition software. While efforts are made to proofread this document, sound alike and grammatical errors may occur. Departure - Departure Disposition: Home, Self Care Clinical Impression: Peripheral vertigo Qualifiers: Laterality: right Qualified Code(s): H81.391 - Other peripheral vertigo, right ear Condition: Good Instructions: ED BPV Vertigo Follow-Up: Brittany Guy, IRVIN [Primary Care Provider] - Prescriptions: Meclizine HCl 25 mg PO Q6H PRN #30 tab PRN Reason: Dizziness Comments: Your prescription was sent to [facility] in [place]. You can use the meclizine as needed for vertigo at home. This can help with the dizzy spells. You can also try repositioning maneuvers such as the Margarita maneuver or half somersault maneuver. The instructions for these are on YouTube. Your right ear appears to be infected today. Please return if you worsen. Forms: PCP List Discharge Date/Time: 07/24/24 11:04
[2024-07-24] MEDS: MECLIZINE 12.5 MG TABLET PO STA (09:39)
[2024-07-24 10:01] LABS: BASOPHILS % (AUTO) 0.3 %; EOSINOPHILS # (AUTO) 0.2 10^3/uL (0.0-0.7); EOSINOPHILS % (AUTO) 3.7 %; HCT - HEMATOCRIT 42.5 % (42.0-52.0); HGB - HEMOGLOBIN 14.4 g/dL (14.0-18.0); LYMPHOCYTES # (AUTO) 1.1 10^3/uL (1.5-3.5); LYMPHOCYTES % (AUTO) 17.5 %; MEAN CORPUSCULAR HEMOGLOBIN 29.7 pg (27.0-31.0); MEAN CORPUSCULAR HGB CONC 33.9 g/dL (32.0-36.0); MEAN CORPUSCULAR VOLUME 87.6 fL (80.0-94.0); MEAN PLATELET VOLUME 9.2 fL (7.4-11.4); MONOCYTES # (AUTO) 0.5 10^3/uL (0.0-1.0); NEUTROPHILS # (AUTO) 4.2 10^3/uL (1.5-6.6); NEUTROPHILS % (AUTO) 70.2 %; PLT - PLATELET COUNT 191 10^3/uL (130-450); RED BLOOD COUNT 4.85 10^6/uL (4.70-6.10); RED CELL DISTRIBUTION WIDTH 13.2 % (12.0-15.0)
[2024-07-24 10:12] LABS: ALBUMIN 4.3 g/dL (3.2-5.5); ALBUMIN/GLOBULIN RATIO 1.5 (1.0-2.2); BILIRUBIN,TOTAL 0.6 mg/dL (0.2-1.0); CALCIUM 9.7 mg/dL (8.5-10.3); POTASSIUM 4.3 mmol/L (3.5-4.5); TOTAL PROTEIN 7.1 g/dL (6.4-8.9)
[2024-07-24 10:18] LABS: TROPONIN I HIGH SENSITIVITY 5.3 ng/L (2.3-19.7)
--- NOTE | 2024-07-24 11:02 | XRAY Report ---
PROCEDURE: Chest 1V INDICATIONS: Chest Pain TECHNIQUE: One view of the chest was acquired. COMPARISON: CT chest on May 05, 2024. FINDINGS: Surgical changes and devices: None. Lungs and pleura: Query a small left pleural effusion. No right-sided pleural effusion. No pneumotho rax. Lungs are clear. Mediastinum: Mediastinal contours appear normal. Heart size is normal. Aortic arch is calcified, in dicating atherosclerosis. Bones and chest wall: No suspicious bony lesions. Overlying soft tissues appear unremarkable. IMPRESSION: Query a small left pleural effusion. If clinically warranted, consider a two-view chest radiograph fo r further evaluation. Reviewed by: Spike Simon MD on 07/24/2024 10:00 AM ARA Approved by: Spike Simon MD on 07/24/2024 10:00 AM ARA Station ID: [id number]
[2024-07-24 11:09] VITALS: BP 120/69; O2SAT 99
== END 2024-07-24 11:04 | disposition home or self-care (01) ==
LOC: ED 08:42
DX: H81.391 Other peripheral vertigo, right ear (principal); I10 Essential (primary) hypertension; E78.00 Pure hypercholesterolemia, unspecified; Z79.899 Other long term (current) drug therapy
CPT/HCPCS: 36415; 71045; 80053; 83690; 84484; 85025; 93005; 99284; A9270